=== PATIENT | male | born 1945 | race Caucasian/White ===

== ENCOUNTER 2019-05-05 08:34 | Outpatient (CLI) | payer MEDICARE, OTHER ==
--- NOTE | 2019-05-01 13:28 | NUR ---
STATES THEY WILL CALL AND CANCELL ON SUNDAY IF THE WEATHER IS BAD. GAVE THE [phone] NUMBER
[~2019-05-05] VITALS: Ht 172.7 cm; Wt 74.7 kg
[2019-05-05] VITALS (12 sets, daily range): BP systolic 98–119; BP diastolic 52–71; PULSE 54–61
[~2019-05-05 08:34] MED LIST: ALTACE 10MG TAB10 MG PO; ASPIRIN 81M81 MG/TA2 PO; COUMADIN 1MG1 MG/TAB PO; COUMADIN 22.5 MG/TAB PO; COUMADIN 5MG5 MG/TAB; CRESTOR40 MG PO; EFFIENT10 MG PO; FLOMAX 0.40.4 MG/CAP PO; TENORMIN 5050 MG/TAB PO
[2019-05-05] MEDS ORDERED: EPA FISH OIL1 SGL PO (09:02)
[2019-05-05 09:07] LABS: INR 1.5 (0.8-3.0); PROTHROMBIN TIME 17.5 SECONDS (9.7-12.8)
--- NOTE | 2019-05-05 10:40 | NUR ---
Dr Naylor in room, procedure started
--- NOTE | 2019-05-05 10:53 | NUR ---
several tissue samples put in formulin, procedure completed, has bandaid over site
--- NOTE | 2019-05-05 11:00 | NUR ---
BEDSIDE REPORT TAKEN FROM ERIKA SHAFFER IN RADIOLOGY.
--- NOTE | 2019-05-05 13:00 | NUR ---
XRAY CALLED TO GATHER POST CHEST XRAY AFTER LUNG BIOPSY. XRAY AWARE.
--- NOTE | 2019-05-05 13:30 | NUR ---
DR WILEY IN TO SPEAK WITH PT/SPOUSE. PER DR WILEY, PT IS OK TO BE DISCHARGED TO HOME. ENCOURAGED TO TAKE IT EASY FOR THE REST OF THE DAY. D/C INSTRUCTIONS WERE REVIEWED WITH PT/SPOUSE BY THIS RN. PT/SPOUSE VOICE UNDERSTANDING. PT VOIDED WITH NO COMPLICATIONS. PT DOES NOT COMPLAIN OF N/V WITH INTAKE. PT WAS DISCHARGED VIA AMBULATION WITH AT HIS SIDE TO PRIVATE VEHICLE WITH DISCHARGE INSTRUCTIONS IN HAND.
== END 2019-05-05 13:52 | disposition home or self-care (01) ==
LOC: COL.RAD 08:34
PROVIDERS: Radiology Diagnostic Radiology
DX: R91.8 Other nonspecific abnormal finding of lung field (principal); R93.89 Abnormal findings on diagnostic imaging of other specified body structures; Z98.890 Other specified postprocedural states

== ENCOUNTER 2019-07-08 05:51 | Day surgery (SDC) | payer MEDICARE, OTHER ==
[~2019-07-08] VITALS: Ht 174 cm; Wt 72.9 kg
[~2019-07-08 05:51] MED LIST changes: +EPA FISH OIL1 SGL PO
[2019-07-08 06:29] VITALS: BP 116/48; PULSE 64; TEMP 98.3
--- NOTE | 2019-07-08 06:39 | NUR ---
TO RM AT 0601- CALL LIGHT IN REACH AT BEDSIDE.
[2019-07-08 08:47] LABS: INR 1.3 (0.8-3.0); PROTHROMBIN TIME 15.8 SECONDS (9.7-12.8)
[2019-07-08 09:34] VITALS: BP 106/54; PULSE 78
--- NOTE | 2019-07-08 09:34 | NUR ---
TO RM 7 PER CART FROM OR, ALERT ORIENTED X3, TALKING TO STAFF AND . PIERSON SET DRESSING OVER INCISION SITE,CLEAN DRY INTACT. DENIES PAIN OR DISCOMFORT AT THIS TIME.
[2019-07-08 09:55] VITALS: BP 97/44; PULSE 60
--- NOTE | 2019-07-08 09:55 | NUR ---
ATE 100% AND ASK FOR 2ND MUFFIN.
[2019-07-08 10:10] VITALS: BP 106/44; PULSE 58
--- NOTE | 2019-07-08 10:10 | NUR ---
RECEIVED 2ND CUP OF COFFEE.
[2019-07-08] MEDS ORDERED: NORCO 325 MG-51 TAB PO (10:11)
[2019-07-08] MEDS ORDERED: MOTRIN 600600 MG/TAB PO (10:11)
[2019-07-08 10:25] VITALS: BP 102/45; PULSE 59
--- NOTE | 2019-07-08 10:25 | NUR ---
RESTING AND SIPPING ON COFFEE. CONTINUES TO HAVE OCCASIONAL COUGH
--- NOTE | 2019-07-08 10:45 | NUR ---
AMBULATED TO BATHROOM, VOIDED AND TOLERATED WELL. OFFERED PATIENT TO REST OR HE COULD GO HOME. PATIENT STATED " I THINK I FEEL LIKE GOING HOME."
--- NOTE | 2019-07-08 11:00 | NUR ---
RECEIVED DISCHARGE INSTRUCTIONS AND VERBALIZED UNDERSTANDING. DISCONTINUED IV AND INT- CATHETER INTACT.
--- NOTE | 2019-07-08 11:15 | NUR ---
DISCHARGED PER WC BY NURSING STAFF TO PRIVATE CAR IN CARE OF - RADHA.
== END 2019-07-08 11:36 | disposition home or self-care (01) ==
LOC: SDCO 05:51
PROVIDERS: Surgery
DX: C34.92 Malignant neoplasm of unspecified part of left bronchus or lung (principal); Z79.82 Long term (current) use of aspirin; Z79.01 Long term (current) use of anticoagulants; Z79.899 Other long term (current) drug therapy; I25.10 Atherosclerotic heart disease of native coronary artery without angina pectoris; I25.2 Old myocardial infarction; I10 Essential (primary) hypertension; E78.00 Pure hypercholesterolemia, unspecified; Z95.5 Presence of coronary angioplasty implant and graft; Z87.891 Personal history of nicotine dependence
CPT/HCPCS: C1788; J1644; J2704; J3010; J7120

== ENCOUNTER → 2020-01-28 | Outpatient (CLI) | payer MEDICARE, OTHER ==
[2020-01-28] VITALS (15 sets, daily range): BP systolic 92–134; BP diastolic 49–74; PULSE 60–83
[~2020-01-28] VITALS: Ht 172.7 cm; Wt 72.6 kg
[~2020-01-28] MED LIST changes: +CEPHALEXIN500 M1 PO; +ELIQUIS 2.5 PO; +ELIQUIS 5MG PO; +MOTRIN 600600 MG/TAB PO; +MUCINEX PO; +NORCO 325 MG-51 TAB PO
--- NOTE | 2020-01-28 10:50 | NUR ---
Pt to ct per ambulation. Pt positioned on CT table in prone position. Monitors applied to pt. O2 on at 2l/nc.
--- NOTE | 2020-01-28 11:05 | NUR ---
Dr Bae into room and talks with pt.
--- NOTE | 2020-01-28 11:21 | NUR ---
Specimens obtained by Dr Bae and placed in formalin. Specimen labeled.
--- NOTE | 2020-01-28 12:36 | NUR ---
Pt given vanilla pudding and coffee to drink. Bandaid to right side back continues unchanged.
== END ==
LOC: COL.RAD 09:41
DX: C34.32 Malignant neoplasm of lower lobe, left bronchus or lung (principal); N28.89 Other specified disorders of kidney and ureter
CPT/HCPCS: J1644; J2250; J3010

== ENCOUNTER 2020-03-04 12:20 | Inpatient (IN) | payer MEDICARE, OTHER ==
[~2020-03-04] VITALS: Ht 172.7 cm; Wt 72.2 kg
[~2020-03-04 12:20] MED LIST changes: +TYLENOL 325MG325 MG PO; +ZESTRIL 5MG5 MG PO
[2020-03-04 12:58] LABS: HEMOGLOBIN 10.4 g/dl (13.5-18.0); MEAN CELL VOLUME 81 fl (80.0-100.0); MEAN CORPUSCULAR HEMOGLOBIN 26 pg (27.0-31.0); MEAN CORPUSCULAR HGB CONC 32 g/dl (33.0-37.0); MEAN PLATELET VOLUME 9.7 fl (7.4-10.4); PLATELET COUNT 65 K/mm3 (130-400); RED BLOOD COUNT 3.96 M/mm3 (4.20-5.60); REDCELL DISTRIBUTION WIDTH-CV 14.8 % (11.5-14.5)
[2020-03-04 13:02] LABS: HEMATOCRIT 32.2 % (42.0-52.0)
[2020-03-04 13:10] LABS: ALBUMIN 3.6 gm/dL (3.5-5.0); BILIRUBIN,TOTAL 0.5 mg/dL (0.0-1.0); C-REACTIVE PROTEIN 3.6 mg/dL (0.0-0.9); CALCIUM 8.5 mg/dL (8.4-10.2); CREATININE, serum 1.49 (0.66-1.25); POTASSIUM 4.8 mmol/L (3.4-5.0); TOTAL PROTEIN 6.8 gm/dL (6.4-8.2)
[2020-03-04 13:35] LABS: BAND 2 % (0-10); NEUTROPHILS 14 % (42.0-75.2)
[2020-03-04 13:36] LABS: PLATELET ESTIMATE DECREASED (NORMAL)
[2020-03-04 13:38] LABS: OVALOCYTES 1+
[2020-03-04 13:39] LABS: HYPOCHROMIA 1+
[2020-03-04 13:40] LABS: LYMPHOCYTE 81 % (20.0-51.0)
[2020-03-04 13:51] LABS: INR 1.4 (0.8-3.0); PROTHROMBIN TIME 15.8 SECONDS (9.7-12.8)
[2020-03-04] MEDS ORDERED: FOLIC ACID 11 MG/TA1 PO (14:12)
[2020-03-04 14:57] LABS: COLLECTION METHOD CLEAN CATCH
[2020-03-04 15:03] LABS: PH 6 (5-8); SQUAMOUS EPITHELIAL 0-2 /hpf; URINE APPEARANCE Clear; URINE BACTERIA None Seen /hpf; URINE BILIRUBIN Negative (NEGATIVE); URINE BLOOD Negative (NEGATIVE); URINE COLOR Yellow; URINE GLUCOSE Negative (NEGATIVE); URINE KETONE Negative (NEGATIVE); URINE LEUKOCYTE ESTERASE Negative (NEGATIVE); URINE NITRATE Negative (NEGATIVE); URINE PROTEIN(semi-quant) Negative (NEGATIVE); URINE RBC 0-2 /hpf; URINE UROBILINOGEN Negative (NEGATIVE)
[2020-03-04 17:25] VITALS: BP 126/67; PULSE 79; TEMP 97.7
--- NOTE | 2020-03-04 18:43 | NUR ---
Patient arrived to floor at approximately 1720. Patient is alert and oriented, answers questions appropriately. Patient moves in the room independently and is continent of bladder and bowel. Patient denies needs at this time, call light within reach.
[2020-03-04 19:34] VITALS: BP 125/42; PULSE 62; TEMP 98.2
--- NOTE | 2020-03-04 20:00 | NUR ---
Report received, assumed care for exchange underwriting consultant. Assessment complete. VS stable. A&Ox3-drowsy. Denies shortness of breath/nausea. Pain to abdomen/back-described as ache-Pain meds given per dr order. Port to right chest with NS@75mls/hr. Plan of care discussed for pain/nausea meds-calling for needs. Verbalizes understanding. Call light in reach. Will monitor.
[2020-03-05] VITALS (7 sets, daily range): BP systolic 95–124; BP diastolic 45–60; PULSE 62–79; TEMP 97.9–98.9
--- NOTE | 2020-03-05 | NUR ---
Called with c/o pain to back/abdomen-rating 8/10 on pain scale-described as constant ache. Morphine given per dr order. Will monitor.
--- NOTE | 2020-03-05 00:03 | NUR ---
Resting eyes closed. No s/s of pain noted.
--- NOTE | 2020-03-05 01:15 | NUR ---
Called stating pain is 8/10 to back/abdomen-described as constant ache. States morphine did not touch pain. Dilaudid given per dr order. Will monitor.
--- NOTE | 2020-03-05 01:45 | NUR ---
Resting eyes closed. NO s/s of pain noted.
--- NOTE | 2020-03-05 03:00 | NUR ---
Called with c/o nausea. Did have 100mls of emesis-undigested food. C/O pain as well to abdomen-described as cramping-rating 6/10 on pain scale. Dilaudid given per dr order. Will monitor.
--- NOTE | 2020-03-05 05:00 | NUR ---
Sitting up in bed-c/o pain to abdomen/back-rating 8/10 on pain scale-described as constant ache. States dilaudid given at 0115 worked much better than the previous doses of morphine and lasted much longer. Dilaudid given now per dr order. Denies nausea/shortness of breath. VS remained stable this shift. Tolerated clear liquids. NS@75ml/hr to right chest port infusing without difficulties. Call light in reach. Will continue to monitor.
[2020-03-05 06:25] LABS: MEAN CELL VOLUME 82 fl (80.0-100.0); MEAN CORPUSCULAR HGB CONC 32 g/dl (33.0-37.0); MEAN PLATELET VOLUME 10.4 fl (7.4-10.4); RED BLOOD COUNT 3.46 M/mm3 (4.20-5.60)
[2020-03-05 06:33] LABS: CALCIUM 8.2 mg/dL (8.4-10.2); CREATININE, serum 1.5 (0.66-1.25); POTASSIUM 4.9 mmol/L (3.4-5.0)
[2020-03-05 06:41] LABS: HEMATOCRIT 28.4 % (42.0-52.0); HEMOGLOBIN 9.2 g/dl (13.5-18.0); MEAN CORPUSCULAR HEMOGLOBIN 27 pg (27.0-31.0); PLATELET COUNT 47 K/mm3 (130-400)
[2020-03-05 06:55] LABS: BAND 3 % (0-10); BASOPHIL 1 % (0-2); LYMPHOCYTE 65 % (20.0-51.0); NEUTROPHILS 22 % (42.0-75.2); NUCLEATED RED BLOOD CELL 1 (0-6)
[2020-03-05 06:56] LABS: HYPOCHROMIA 1+; PLATELET ESTIMATE DECREASED (NORMAL)
[2020-03-05 06:57] LABS: OVALOCYTES 2+
--- NOTE | 2020-03-05 07:34 | NUR ---
Critical lab results called to hospitalist Angelina mcghee.
--- NOTE | 2020-03-05 08:30 | NUR ---
Patient resting in bed with complaints of nausea and pain. Gave zofran and dilaudid. Patient now resting comfortably in bed. rounded on patient and reviewed plan of care.
--- NOTE | 2020-03-05 14:42 | NUR ---
Vp Marketing met with patient to discuss discharge planning. Patient lives in [place] with his significant other, Jennifer (ph#[phone]). Patient reports that he is not legally to Jennifer, but is common law. Patient sees Dr. Teran for primary care and Dr. Ramires for Oncology. Patient reports he receives chemotherapy every three weeks. Patient obtains medications from [facility] with no difficulties. Patient does not use any DME and reports independence with ADLS. Patient states he is unsure if he has DPOA-HC set up at this time. Patient has two children, Nkiki ([place], [place]) and Karen ([place], [place]). Following intake, SINTIA contacted [facility] [place] at Dr. Teran's office and they did not have any Advance Directives for patient. SINTIA also contacted Dr. Ramires's office and they also do not have AD for patient. SW contacted patient's significant other, Jennifer to discuss discharge planning. Jennifer has no concerns with patient returning home at discharge. Jennifer advised patient does not have DPOA-HC at this time. SINTIA discussed Advance Directives with Jennifer and she expressed interest in sending home form with patient to complete at home. SINTIA followed up with patient about Advance Directives and patient does not want to designate DPOA-HC at this time, but does want to take home the form to discuss with Jennifer. SINTIA provided and will continue to follow.
--- NOTE | 2020-03-05 19:23 | NUR ---
Patient has continued complaints of right upper quadrant pain. He has tolerated some clear liquids.
--- NOTE | 2020-03-05 20:00 | NUR ---
Report received, assumed care for furniture restorer. Assessment complete. A&Ox3. VS stable. Denies pain/nausea/shortness of breath. Bowel sounds active in all quads. +flatus. tolerating diet. Portacath to right subclavian infusing NS@75ml/hr. Plan of care discussed for this shift to include HS meds/pain meds/nausea meds/calling for questions/concerns. Verbalizes understanding. Call light in reach. Will monitor.
--- NOTE | 2020-03-05 21:15 | NUR ---
Called with c/o pain to right abdominal quadrants radiating into back-described as constant throbbing-rating pain 10/28. Dilaudid given per dr pb. Will monitor.
--- NOTE | 2020-03-06 00:30 | NUR ---
Called with c/o pain to right upper quadrant and back-rating pain 6/10 on pain scale-described as throbbing. Dilaudid given per dr ambriz.
[2020-03-06 03:23] VITALS: BP 106/54; PULSE 97; TEMP 98.1
--- NOTE | 2020-03-06 05:30 | NUR ---
Rested off and on this shift. Pain adequately controlled with dilaudid. Received one dose of zofran for nausea. Portacath to right chest flushes without difficulty-good blood return. Denies shortness of breath. VS remained stable. Denies current needs. Call light in reach. Will monitor.
[2020-03-06 05:58] LABS: MEAN CELL VOLUME 81 fl (80.0-100.0); MEAN CORPUSCULAR HGB CONC 32 g/dl (33.0-37.0); RED BLOOD COUNT 3.14 M/mm3 (4.20-5.60)
[2020-03-06 06:01] LABS: HEMATOCRIT 25.4 % (42.0-52.0); HEMOGLOBIN 8.2 g/dl (13.5-18.0); MEAN CORPUSCULAR HEMOGLOBIN 26 pg (27.0-31.0)
[2020-03-06 06:03] LABS: PLATELET COUNT 28 K/mm3 (130-400)
[2020-03-06 06:09] LABS: CALCIUM 7.8 mg/dL (8.4-10.2); CREATININE, serum 1.68 (0.66-1.25); POTASSIUM 4.3 mmol/L (3.4-5.0)
--- NOTE | 2020-03-06 06:10 | NUR ---
Called with c/o bloody nose. Small amount of blood noted on kleenex-not currently bleeding. States it also happened yesterday on dayshift.
--- NOTE | 2020-03-06 06:16 | NUR ---
Dr Gunn notified of critical labs. No new orders received.
[2020-03-06 06:37] LABS: BAND 8 % (0-10); HYPOCHROMIA 1+; LYMPHOCYTE 50 % (20.0-51.0); MICROCYTOSIS 1+; NEUTROPHILS 36 % (42.0-75.2); PLATELET ESTIMATE DECREASED (NORMAL)
[2020-03-06 06:38] LABS: OVALOCYTES 1+
[2020-03-06 07:27] VITALS: BP 118/97; PULSE 84; TEMP 97.2
--- NOTE | 2020-03-06 07:57 | NUR ---
Sitting up in bed with eyes open watching TV. Having some pain and if able would like to get pain medication. Explains that pain is at lower right rib cage and stomach area. Will assess last dose of pain medication and administer if able. Patient short of air with activity. Has had bloody nose this morning. Denies any other needs or concerns at this time.
[2020-03-06 11:44] VITALS: BP 98/46; PULSE 65; TEMP 97.4
--- NOTE | 2020-03-06 12:10 | NUR ---
Sitting up in bed watching TV. Rates pain 4/10 in right upper abd, worse with movement, tolerable at this time. Patient denies any additional needs or concerns at this time.
[2020-03-06 16:05] VITALS: BP 121/52; PULSE 84; TEMP 98.3
--- NOTE | 2020-03-06 17:54 | NUR ---
Lying in bed with eyes open talking with spouse. Denies pain. Explains that he has questions about why he is still on Eliquis as he has not had a blood clot or heart problems for many years and he is not certain why he has to be on it. Explain that we will need to discuss this further with his provider in the morning to see if we can get some answers. Patient and agree. Patient denies any additional needs or concerns at this time.
[2020-03-06 19:48] VITALS: BP 108/46; PULSE 66; TEMP 99.2
--- NOTE | 2020-03-06 20:30 | NUR ---
Pt. sitting up in bed at this time. Pt. is A&OX3, assessment complete. PORT to rt. chest patent. Pt. denies pain or other needs, call light within reach.
[2020-03-06 23:50] VITALS: BP 92/43; PULSE 66; TEMP 98.7
[2020-03-07 03:39] VITALS: BP 98/45; PULSE 83; TEMP 97.8
--- NOTE | 2020-03-07 04:25 | NUR ---
PT AWAKE. STARTED ZOSYN INFUSION TO RT PORT, HAS GOOD BLOOD RETURN WHEN FLUSHED, INFUSING AT 25CC/HR. PT BLOWS NOSE, HAS LARGE STRINGY CLOT FROM LEFT NARE AND SMALL CLOT FROM RT NARE. DENIES PAIN AT THIS TIME.
[2020-03-07 05:36] LABS: MEAN CELL VOLUME 81 fl (80.0-100.0); MEAN CORPUSCULAR HGB CONC 32 g/dl (33.0-37.0); MEAN PLATELET VOLUME 10.8 fl (7.4-10.4); RED BLOOD COUNT 2.81 M/mm3 (4.20-5.60); REDCELL DISTRIBUTION WIDTH-CV 15.1 % (11.5-14.5)
[2020-03-07 05:41] LABS: HEMATOCRIT 22.7 % (42.0-52.0); HEMOGLOBIN 7.3 g/dl (13.5-18.0); MEAN CORPUSCULAR HEMOGLOBIN 26 pg (27.0-31.0); PLATELET COUNT 22 K/mm3 (130-400)
[2020-03-07 05:45] LABS: CALCIUM 7.9 mg/dL (8.4-10.2); CREATININE, serum 2.13 (0.66-1.25); POTASSIUM 3.9 mmol/L (3.4-5.0)
--- NOTE | 2020-03-07 05:49 | NUR ---
REPORTED WBC=1.4 AND PLT 22 TO KANE JIMENEZ. NO NEW ORDERS. PT HAS NO ACTIVE BLEEDING.
[2020-03-07 05:57] LABS: LYMPHOCYTE 62 % (20.0-51.0); NEUTROPHILS 24 % (42.0-75.2); PLATELET ESTIMATE DECREASED (NORMAL)
[2020-03-07 05:58] LABS: METAMYELOCYTE 1 % (0-0)
[2020-03-07 07:09] VITALS: BP 98/48; PULSE 81; TEMP 97.6
--- NOTE | 2020-03-07 07:49 | NUR ---
Sitting up in bed eating clear liquid breakfast. Rates pain in right upper abd 2/10. Patient says that he feels okay this morning, was able to get some sleep last night. Denies any additional needs or concerns at this time.
[2020-03-07 11:19] VITALS: BP 97/44; PULSE 70; TEMP 97.7
--- NOTE | 2020-03-07 12:10 | NUR ---
Sitting up in bed watching TV and eation low fiber lunch. Patient rates pain in right upper abd 05/30. Feels that he is getting better. Denies additional needs or concerns at this time.
[2020-03-07 15:44] VITALS: BP 113/51; PULSE 68; TEMP 98.2
--- NOTE | 2020-03-07 16:19 | NUR ---
Resumed care after getting report from Angelina. Patient is resting in bed with no complaints of pain.
--- NOTE | 2020-03-07 18:54 | NUR ---
Patient resting, denies need. Report to ERIKA Quijano
[2020-03-07 20:26] VITALS: BP 115/44; PULSE 85; TEMP 99
[2020-03-07 23:54] VITALS: BP 112/49; PULSE 83; TEMP 98.9; TEMP 987.9
[2020-03-08] VITALS (7 sets, daily range): BP systolic 102–131; BP diastolic 42–71; PULSE 62–87; TEMP 97.4–98.3
[2020-03-08 06:59] LABS: MEAN CELL VOLUME 81 fl (80.0-100.0); MEAN CORPUSCULAR HGB CONC 33 g/dl (33.0-37.0); MEAN PLATELET VOLUME 10.6 fl (7.4-10.4); RED BLOOD COUNT 2.84 M/mm3 (4.20-5.60)
[2020-03-08 07:05] LABS: CALCIUM 7.7 mg/dL (8.4-10.2); CREATININE, serum 2.15 (0.66-1.25); POTASSIUM 3.7 mmol/L (3.4-5.0)
[2020-03-08 07:15] LABS: HEMOGLOBIN 7.5 g/dl (13.5-18.0); MEAN CORPUSCULAR HEMOGLOBIN 26 pg (27.0-31.0)
[2020-03-08 07:16] LABS: PLATELET COUNT 31 K/mm3 (130-400)
[2020-03-08 07:54] LABS: ANISOCYTOSIS 1+; BAND 16 % (0-10); LYMPHOCYTE 31 % (20.0-51.0); NEUTROPHILS 36 % (42.0-75.2); PLATELET ESTIMATE DECREASED (NORMAL)
[2020-03-08 07:55] LABS: HYPOCHROMIA 1+; OVALOCYTES 1+
--- NOTE | 2020-03-08 08:00 | NUR ---
Patient in bed eating breakfast. Alert and oriented x 3. Assessment complete. Denies pain at this time. IV fluids infusing per orders. Denies further needs at this time.
--- NOTE | 2020-03-08 20:51 | NUR ---
PT IN BED. TAKES HS MEDS INCLUDING ES TYLENOL 2 TABS FOR LEG PAIN. IS ALERT AND ORIENTED X4. HAS IVF INFUSING TO RT PORT. REPORTS LARGE BM TODAY. VOIDING PER URINAL. WATCHING TV.
[2020-03-09 04:18] VITALS: BP 117/52; PULSE 70; TEMP 98.4
--- NOTE | 2020-03-09 06:00 | NUR ---
Takes AM med without problem. Denies needs at this time. IVF continue.
[2020-03-09 07:50] VITALS: BP 126/53; PULSE 70; TEMP 97.8
--- NOTE | 2020-03-09 08:00 | NUR ---
PATIENT IS A&O. VSS. REPORTS MILD MORNING STIFFNESS IN LEG. GAVE PRN TYLENOL, TWO TABS WITH AM MEDS. NO C/O N/V. BREAKFAST TRAY AT BEDSIDE. LOW FIBER DIET. IV ABX INFUSING INTO RIGHT CHEST PORT. AM BS IS 109, NO SSI REQUIRED. PATIENT HOPING TO DISCHARGE HOME LATER TODAY.
[2020-03-09] MEDS ORDERED: PROTONIX 40MG T40 MG PO (08:57)
[2020-03-09] MEDS ORDERED: OMNICEF 300MG300 MG PO (09:05)
--- NOTE | 2020-03-09 09:21 | NUR ---
The patient is to tentatively discharge back home with his significant other today, 03/09. SW met with the patient to review d/c plan. The patient had no concerns about returning home. SW presented and read the IM form outloud to the patient. The patient verbalized understanding and gave SW approval to sign the form on his behalf. SW provided him with a copy. No additional needs at this time.
[2020-03-09 09:41] LABS: MEAN CELL VOLUME 81 fl (80.0-100.0); MEAN CORPUSCULAR HGB CONC 33 g/dl (33.0-37.0); MEAN PLATELET VOLUME 10.4 fl (7.4-10.4); PLATELET COUNT 72 K/mm3 (130-400); REDCELL DISTRIBUTION WIDTH-CV 15.3 % (11.5-14.5)
[2020-03-09 09:42] LABS: CALCIUM 7.6 mg/dL (8.4-10.2); CREATININE, serum 1.74 (0.66-1.25); HEMATOCRIT 24.3 % (42.0-52.0); MAGNESIUM 1.7 mg/dL (1.6-2.3); MEAN CORPUSCULAR HEMOGLOBIN 27 pg (27.0-31.0); POTASSIUM 3.6 mmol/L (3.4-5.0)
[2020-03-09 10:07] LABS: MYELOCYTE 3 % (0-0)
[2020-03-09 10:08] LABS: HYPOCHROMIA 2+; OVALOCYTES 1+; PLATELET ESTIMATE DECREASED (NORMAL)
--- NOTE | 2020-03-09 10:12 | NUR ---
Initial visit; Patient thanked Addictions Therapist for looking in on him and offering God's blessings.
[2020-03-09 10:16] LABS: LYMPHOCYTE 14 % (20.0-51.0); METAMYELOCYTE 3 % (0-0); NEUTROPHILS 36 % (42.0-75.2)
[2020-03-09 10:18] LABS: BAND 33 % (0-10)
--- NOTE | 2020-03-09 11:15 | NUR ---
PATIENT DISCHARGING HOME VIA AMBULATORY TO PERSONAL VEHICLE WITH . GAVE DISCHARGE INSTRUCTIONS, SCRIPTS SENT ELECTRONICALLY, AND DISCUSSED F/U APTS. ANSWERED ALL QUESTIONS/CONCERNS. DC-ACCESSED RIGHT CHEST PORT AND COVERED WITH GAUZE & OCCULSIVE TAPE. PATIENT DRESSED AND PACKED FOR DISCHARGE. PATIENT ESCORTED OUT.
== END 2020-03-09 11:15 | disposition home or self-care (01) | DRG 391 ==
LOC: COL.ER 12:20 → SURG 15:28
PROVIDERS: Emergency Medicine; Internal Medicine; Physician Assistant; ADMIT Student in an Organized Health Care Education/Training Program
DX: K29.80 Duodenitis without bleeding (principal); D61.810 Antineoplastic chemotherapy induced pancytopenia; N17.9 Acute kidney failure, unspecified; E87.1 Hypo-osmolality and hyponatremia; C34.90 Malignant neoplasm of unspecified part of unspecified bronchus or lung; I50.22 Chronic systolic (congestive) heart failure; I13.0 Hypertensive heart and chronic kidney disease with heart failure and stage 1 through stage 4 chronic kidney disease, or unspecified chronic kidney disease; K80.80 Other cholelithiasis without obstruction; T45.1X5A Adverse effect of antineoplastic and immunosuppressive drugs, initial encounter; N18.9 Chronic kidney disease, unspecified; K59.00 Constipation, unspecified; D64.9 Anemia, unspecified; E11.65 Type 2 diabetes mellitus with hyperglycemia; E11.22 Type 2 diabetes mellitus with diabetic chronic kidney disease; I25.10 Atherosclerotic heart disease of native coronary artery without angina pectoris; E78.5 Hyperlipidemia, unspecified; E11.51 Type 2 diabetes mellitus with diabetic peripheral angiopathy without gangrene; N20.0 Calculus of kidney; I49.5 Sick sinus syndrome; Z95.1 Presence of aortocoronary bypass graft; Z86.718 Personal history of other venous thrombosis and embolism; Z79.01 Long term (current) use of anticoagulants; Z87.891 Personal history of nicotine dependence; Z95.0 Presence of cardiac pacemaker
CPT/HCPCS: 99223-AI; 99232-AI; 99233-AI; 99239; C9113; J0696; J1170; J1447; J1815; J2270; J2405; J2543; J7030; Q9967

== ENCOUNTER 2020-03-12 00:19 | Emergency (ER) | payer MEDICARE, OTHER ==
[~2020-03-12] VITALS: Ht 172.7 cm; Wt 71.4 kg
[~2020-03-12 00:19] MED LIST changes: +FOLIC ACID 11 MG/TA1 PO; +OMNICEF 300MG300 MG PO; +PROTONIX 40MG T40 MG PO
[2020-03-12 00:25] VITALS: TEMP 97.1
[2020-03-12 01:52] LABS: COLLECTION METHOD IN
[2020-03-12 02:01] LABS: PH 6 (5-8); SQUAMOUS EPITHELIAL None Seen /hpf; URINE APPEARANCE Clear; URINE BACTERIA Rare /hpf; URINE BILIRUBIN Negative (NEGATIVE); URINE BLOOD 1+ (NEGATIVE); URINE COLOR Yellow; URINE GLUCOSE Negative (NEGATIVE); URINE KETONE Negative (NEGATIVE); URINE LEUKOCYTE ESTERASE Negative (NEGATIVE); URINE NITRATE Negative (NEGATIVE); URINE PROTEIN(semi-quant) 1+ (NEGATIVE); URINE UROBILINOGEN Negative (NEGATIVE)
[2020-03-12] MEDS ORDERED: OMNICEF 300MG300 MG PO (02:10)
[2020-03-12 02:25] VITALS: BP 108/58; PULSE 84
== END 2020-03-12 02:30 | disposition home or self-care (01) ==
LOC: COL.ER 00:19
PROVIDERS: Emergency Medicine
DX: R33.9 Retention of urine, unspecified (principal); I25.10 Atherosclerotic heart disease of native coronary artery without angina pectoris; I10 Essential (primary) hypertension; N17.9 Acute kidney failure, unspecified; C78.00 Secondary malignant neoplasm of unspecified lung; Z79.01 Long term (current) use of anticoagulants

== ENCOUNTER 2020-04-14 19:44 | Emergency (ER) | payer MEDICARE, OTHER ==
[~2020-04-14] VITALS: Ht 172.7 cm; Wt 71.8 kg
[~2020-04-14 19:44] MED LIST changes: +ALTACE 5MG5 MG PO; +B-12 500 MCG PO
[2020-04-14 19:54] VITALS: TEMP 97.2
[2020-04-14 21:15] LABS: MEAN CELL VOLUME 87 fl (80.0-100.0); MEAN CORPUSCULAR HGB CONC 33 g/dl (33.0-37.0); MEAN PLATELET VOLUME 10.4 fl (7.4-10.4); RED BLOOD COUNT 2.72 M/mm3 (4.20-5.60); REDCELL DISTRIBUTION WIDTH-CV 19.8 % (11.5-14.5)
[2020-04-14 21:21] LABS: BILIRUBIN,TOTAL 0.6 mg/dL (0.0-1.0); C-REACTIVE PROTEIN 5.6 mg/dL (0.0-0.9); CALCIUM 7.5 mg/dL (8.4-10.2); CREATININE, serum 1.27 (0.66-1.25); POTASSIUM 3.9 mmol/L (3.4-5.0); TOTAL PROTEIN 5.5 gm/dL (6.4-8.2)
[2020-04-14 21:27] LABS: HEMATOCRIT 23.7 % (42.0-52.0); HEMOGLOBIN 7.9 g/dl (13.5-18.0); MEAN CORPUSCULAR HEMOGLOBIN 29 pg (27.0-31.0); PLATELET COUNT 37 K/mm3 (130-400)
[2020-04-14] MEDS ORDERED: AMOXICILLIN 8751 TAB PO (22:50)
[2020-04-14 22:52] LABS: INR 24.5 (0.8-3.0)
[2020-04-14 22:53] LABS: ANISOCYTOSIS 2+; LYMPHOCYTE 56 % (20.0-51.0); NEUTROPHILS 36 % (42.0-75.2); PLATELET ESTIMATE DECREASED (NORMAL)
[2020-04-14 22:55] LABS: POLYCHROMASIA 1+
[2020-04-14 23:45] LABS: INR 1.5 (0.8-3.0); PROTHROMBIN TIME 16.4 SECONDS (9.7-12.8)
[2020-04-15 00:16] VITALS: BP 124/61; PULSE 87
== END 2020-04-15 00:20 | disposition home or self-care (01) ==
LOC: COL.ER 19:44
PROVIDERS: Emergency Medicine
DX: S02.611A Fracture of condylar process of right mandible, initial encounter for closed fracture (principal); S01.81XA Laceration without foreign body of other part of head, initial encounter; S01.311A Laceration without foreign body of right ear, initial encounter; D72.819 Decreased white blood cell count, unspecified; D69.6 Thrombocytopenia, unspecified; C79.01 Secondary malignant neoplasm of right kidney and renal pelvis; M50.322 Other cervical disc degeneration at C5-C6 level; I11.0 Hypertensive heart disease with heart failure; I50.20 Unspecified systolic (congestive) heart failure; E78.5 Hyperlipidemia, unspecified; Z51.11 Encounter for antineoplastic chemotherapy; I25.10 Atherosclerotic heart disease of native coronary artery without angina pectoris; Z85.118 Personal history of other malignant neoplasm of bronchus and lung; Z95.1 Presence of aortocoronary bypass graft; Z86.718 Personal history of other venous thrombosis and embolism; Z95.2 Presence of prosthetic heart valve; Z79.01 Long term (current) use of anticoagulants; Z79.82 Long term (current) use of aspirin; W01.198A Fall on same level from slipping, tripping and stumbling with subsequent striking against other object, initial encounter
CPT/HCPCS: J7030

== ENCOUNTER 2020-05-07 15:10 | Emergency (ER) | payer MEDICARE, OTHER ==
[~2020-05-07] VITALS: Ht 172.7 cm; Wt 70.0 kg
[~2020-05-07 15:10] MED LIST changes: +AMOXICILLIN 8751 TAB PO
[2020-05-07 15:22] VITALS: TEMP 97.5
[2020-05-07 16:16] LABS: MEAN CELL VOLUME 94 fl (80.0-100.0); MEAN CORPUSCULAR HGB CONC 32 g/dl (33.0-37.0); MEAN PLATELET VOLUME 11.2 fl (7.4-10.4); RED BLOOD COUNT 2.75 M/mm3 (4.20-5.60); REDCELL DISTRIBUTION WIDTH-CV 21.6 % (11.5-14.5)
[2020-05-07 16:26] LABS: ALBUMIN 3.7 gm/dL (3.5-5.0); BILIRUBIN,TOTAL 0.5 mg/dL (0.0-1.0); C-REACTIVE PROTEIN 3.2 mg/dL (0.0-0.9); CALCIUM 8.4 mg/dL (8.4-10.2); CREATININE, serum 1.64 (0.66-1.25); HEMATOCRIT 25.7 % (42.0-52.0); HEMOGLOBIN 8.3 g/dl (13.5-18.0); MEAN CORPUSCULAR HEMOGLOBIN 30 pg (27.0-31.0); PLATELET COUNT 29 K/mm3 (130-400); POTASSIUM 5.3 mmol/L (3.4-5.0); TOTAL PROTEIN 6.6 gm/dL (6.4-8.2)
[2020-05-07 16:35] LABS: TROPONIN-I 0.022 ng/mL (0.000-0.035)
[2020-05-07 17:13] LABS: ANISOCYTOSIS 2+; EOSINOPHIL 8 % (0-4); HYPOCHROMIA 1+; LYMPHOCYTE 52 % (20.0-51.0); METAMYELOCYTE 4 % (0-0); NEUTROPHILS 4 % (42.0-75.2)
[2020-05-07 17:14] LABS: OVALOCYTES 1+; PLATELET ESTIMATE DECREASED (NORMAL); TEAR DROP CELLS 1+
[2020-05-07 21:58] VITALS: BP 114/58; PULSE 76
[2020-05-08 09:53] LABS: PATHOLOGY DIFF REVIEW OK
== END 2020-05-07 21:58 | disposition short-term general hospital (02) ==
LOC: COL.ER 15:10
PROVIDERS: Family Medicine
DX: I26.99 Other pulmonary embolism without acute cor pulmonale (principal); C34.90 Malignant neoplasm of unspecified part of unspecified bronchus or lung; D69.6 Thrombocytopenia, unspecified; D72.819 Decreased white blood cell count, unspecified; I10 Essential (primary) hypertension; E78.5 Hyperlipidemia, unspecified; I25.10 Atherosclerotic heart disease of native coronary artery without angina pectoris; I25.2 Old myocardial infarction; Z95.1 Presence of aortocoronary bypass graft; Z95.5 Presence of coronary angioplasty implant and graft; Z79.01 Long term (current) use of anticoagulants; Z79.82 Long term (current) use of aspirin
CPT/HCPCS: J0696; J1644; J1650; J7030; Q9967

== ENCOUNTER 2020-05-21 12:48 | Outpatient (RCR) | payer MEDICARE, OTHER ==
[2020-05-21] VITALS (10 sets, daily range): BP systolic 104–131; BP diastolic 47–67; PULSE 64–79; TEMP 97.6–98.6
--- NOTE | 2020-05-21 14:30 | NUR ---
Patient arrived to floor by wheelchair for blood transfusion, consent signed. Port accessed to right chest. Educated patient on transfusion. VSS. Denies needs at this time.
[2020-05-21] MEDS ORDERED: ZOFRAN8 MG PO (14:37)
[2020-05-21] MEDS ORDERED: B COMPLEX & B121 TAB (14:38)
[2020-05-21] MEDS ORDERED: CRESTOR40 MG PO (14:39)
--- NOTE | 2020-05-21 18:39 | NUR ---
Blood transfusion complete, patient VSS. Deneies adverse reaction. Order for H&H recheck entered. Denies needs at this time.
[2020-05-21 19:06] LABS: HEMATOCRIT 27.1 % (42.0-52.0); HEMOGLOBIN 8.9 g/dl (13.5-18.0)
== END 2020-05-24 ==
LOC: EUO
PROVIDERS: Internal Medicine Medical Oncology
DX: C34.32 Malignant neoplasm of lower lobe, left bronchus or lung (principal)
CPT/HCPCS: P9040

== ENCOUNTER 2020-07-03 12:46 | Outpatient (RCR) | payer MEDICARE, OTHER ==
[2020-07-02] VITALS (8 sets, daily range): BP systolic 99–128; BP diastolic 48–67; PULSE 61–80; TEMP 97.3–97.7
[~2020-07-03] VITALS: Ht 172.7 cm; Wt 97.3 kg
[2020-07-03] VITALS (7 sets, daily range): BP systolic 102–125; BP diastolic 41–46; PULSE 69–89; TEMP 97.8
[~2020-07-03 12:46] MED LIST changes: +B-121000 MCG PO; +ZOFRAN8 MG PO
--- NOTE | 2020-07-03 13:30 | NUR ---
PT PREMEDICATED WITH TYLENOL AND BENADRYL PER PHYSICIAN ORDER. BROUGHT PT AND PT ICE WATER. CONSENT SIGNED FOR PLATELETS. PORT ALREADY ACCESSED, NO OTHER NEEDS.
--- NOTE | 2020-07-03 14:14 | NUR ---
EDUCATED PT ON S/S OF INFUSION REACTION, BASELINE VITALS TAKEN, PLATELETS VERIFIED WITH AKILA RN. PT AOX4, STAYED WITH PT FOR FIRST 15MIN, NO OTHER NEEDS.
--- NOTE | 2020-07-03 14:37 | NUR ---
RATE INCREASED AFTER FIRST 15MIN WERE UP. SOME BP LOW WHEN PT MOVING AROUND BUT THEY WOULD COME UP ONCE PT ARM RELAXED AND NOT MOVING AT SIDE. PT NOT REPORTING ANY S/S OF TRANSFUSION REACTION, PT AOX4, COFFEE BROUGHT IN FOR PT AND DIET PEPSI FOR PT .
--- NOTE | 2020-07-03 16:24 | NUR ---
PT ESCORTED OUT WITH PT BELONGINGS VIA WHEELCHAIR
[2020-12-01] MEDS ORDERED: PROTONIX 40MG T40 MG PO (15:38)
[2020-12-01] MEDS ORDERED: ALTACE 2.5MG T2.5 MG PO (19:21)
[2020-12-01] MEDS ORDERED: TENORMIN 2525 MG/TAB PO (19:21)
[2020-12-02] MEDS ORDERED: NORCO 325 MG-51 TAB PO (17:38)
[2020-12-02] MEDS ORDERED: LEVAQUIN 5500 MG/TA1 PO (17:39)
[2020-12-03] MEDS ORDERED: SALINE 45 ML45 ML NS (19:48)
[2020-12-20] MEDS ORDERED: PROTONIX 40MG T40 MG PO (08:51)
[2020-12-20] MEDS ORDERED: ZIAC 5/6.25MG T1 TAB PO (08:53)
== END 2020-07-09 17:25 | disposition home or self-care (01) ==
LOC: EUO 12:46 → MEDICAL 13:00 → EUO 07-09 17:25
DX: C34.32 Malignant neoplasm of lower lobe, left bronchus or lung (principal)
CPT/HCPCS: OP; J1644; J7050; P9037; P9040

== ENCOUNTER 2020-11-30 10:44 | Emergency (ER) | payer MEDICARE, OTHER ==
[~2020-11-30] VITALS: Ht 172.7 cm; Wt 70.0 kg
[2020-11-30 11:49] LABS: BASO % 0.4 % (0.0-2.0); EOS # 0.1 (0.0-0.7); EOS % 0.5 % (0-4.0); GRAN # 7.8 (1.4-6.5); GRAN % 79.9 % (42.2-75.2); LYMPH % 10.3 % (20.0-51.0); MEAN CELL VOLUME 88 fl (80.0-100.0); MEAN CORPUSCULAR HGB CONC 31 g/dl (33.0-37.0); MEAN PLATELET VOLUME 8.9 fl (7.4-10.4); MONO # 0.8 (0.1-0.6); MONO % 8.1 % (1.7-9.3); PLATELET COUNT 296 K/mm3 (130-400); RED BLOOD COUNT 3.11 M/mm3 (4.20-5.60); REDCELL DISTRIBUTION WIDTH-CV 15.4 % (11.5-14.5)
[2020-11-30 11:51] LABS: HEMATOCRIT 27.5 % (42.0-52.0); HEMOGLOBIN 8.5 g/dl (13.5-18.0); MEAN CORPUSCULAR HEMOGLOBIN 27 pg (27.0-31.0)
[2020-11-30 11:55] LABS: ALANINE AMINOTRANSFERASE 10 U/L (4-49); ALBUMIN 3.5 gm/dL (3.5-5.0); ALKALINE PHOSPHATASE 84 U/L (50-136); ANION GAP 8 mmol/L (7-16); AST,SGOT 13 U/L (15-37); BILIRUBIN,TOTAL 0.3 mg/dL (0.0-1.0); BLOOD UREA NITROGEN 38 mg/dL (9-20); CALCIUM 9.4 mg/dL (8.4-10.2); CARBON DIOXIDE 19 mmol/L (22-30); CHLORIDE 101 mmol/L (98-107); CREATININE, serum 2.18 (0.66-1.25); GLUCOSE 232 mg/dL (74-106); POTASSIUM 4.6 mmol/L (3.4-5.0); SODIUM 128 mmol/L (137-145); TOTAL PROTEIN 7.6 gm/dL (6.4-8.2)
[2020-11-30 12:20] LABS: TROPONIN-I < 0.012 ng/mL (0.000-0.035)
[2020-11-30 13:30] VITALS: BP 120/72; PULSE 67; TEMP 97.8
[2020-11-30] MEDS ORDERED: LASIX 20MG TABL20 MG PO (15:47)
[2020-12-01] MEDS ORDERED: PROTONIX 40MG T40 MG PO (15:38)
[2020-12-01] MEDS ORDERED: TENORMIN 2525 MG/TAB PO (19:21)
[2020-12-01] MEDS ORDERED: ALTACE 2.5MG T2.5 MG PO (19:21)
[2020-12-02] MEDS ORDERED: NORCO 325 MG-51 TAB PO (17:38)
[2020-12-02] MEDS ORDERED: LEVAQUIN 5500 MG/TA1 PO (17:39)
[2020-12-03] MEDS ORDERED: SALINE 45 ML45 ML NS (19:48)
[2020-12-20] MEDS ORDERED: PROTONIX 40MG T40 MG PO (08:51)
[2020-12-20] MEDS ORDERED: ZIAC 5/6.25MG T1 TAB PO (08:53)
== END 2020-11-30 13:35 | disposition home or self-care (01) ==
LOC: COL.ER 10:44
PROVIDERS: Emergency Medicine
DX: I11.0 Hypertensive heart disease with heart failure (principal); I50.9 Heart failure, unspecified; R79.89 Other specified abnormal findings of blood chemistry; I25.10 Atherosclerotic heart disease of native coronary artery without angina pectoris; I25.2 Old myocardial infarction; E78.5 Hyperlipidemia, unspecified; Z95.1 Presence of aortocoronary bypass graft; Z95.0 Presence of cardiac pacemaker; Z98.61 Coronary angioplasty status; Z95.828 Presence of other vascular implants and grafts; Z20.822 Contact with and (suspected) exposure to COVID-19; Z79.82 Long term (current) use of aspirin; Z79.899 Other long term (current) drug therapy

== ENCOUNTER → 2020-12-21 | Outpatient (CLI) | payer MEDICARE, OTHER ==
[~2020-12-21] VITALS: Ht 172.7 cm; Wt 65.4 kg
[~2020-12-21] MED LIST changes: +ALTACE 2.5MG T2.5 MG PO; +DEMADEX5 MG PO; +DULCOLAX S10 MG/SUPP RC; +FERROUS SU325 MG/TAB PO; +LASIX 20MG TABL20 MG PO; +LEADER CLE17 GM/Dose PO; +LEVAQUIN 2250 MG/TAB PO; +LEVAQUIN 5500 MG/TA1 PO; +LEVEMIR100 U/ML SQ; +MEGACE 40MG40 MG/TAB PO; +NEURONTIN100 MG/CAP PO; +NOVLOG SQ; +OCEAN NASAL SPR45 ML NS; +PREDNISONE20 MG PO; +SALINE 45 ML45 ML NS; +SENEXON-S 50-81 EACH PO; +TENORMIN 2525 MG/TAB PO; +TOPROL XL 25MG25 MG PO; +ZIAC 5/6.25MG T1 TAB PO; +ZOLOFT 50MG50 MG PO
[2020-12-21 11:13] VITALS: BP 113/73; PULSE 78; TEMP 97.8
[2020-12-21 12:09] VITALS: BP 117/78; PULSE 79
== END ==
LOC: COL.RAD 10:37
DX: C34.32 Malignant neoplasm of lower lobe, left bronchus or lung (principal); J90 Pleural effusion, not elsewhere classified; Z95.1 Presence of aortocoronary bypass graft
CPT/HCPCS: 19804

== ENCOUNTER 2020-12-27 09:29 | Observation (INO) | payer MEDICARE, OTHER ==
[~2020-12-27] VITALS: Ht 172.7 cm; Wt 70.0 kg
[~2020-12-27 09:29] MED LIST changes: -DEMADEX5 MG PO; -DULCOLAX S10 MG/SUPP RC; -FERROUS SU325 MG/TAB PO; -LEADER CLE17 GM/Dose PO; -LEVAQUIN 2250 MG/TAB PO; -LEVEMIR100 U/ML SQ; -MEGACE 40MG40 MG/TAB PO; -NEURONTIN100 MG/CAP PO; -NOVLOG SQ; -OCEAN NASAL SPR45 ML NS; -PREDNISONE20 MG PO; -SENEXON-S 50-81 EACH PO; -TOPROL XL 25MG25 MG PO; -ZOLOFT 50MG50 MG PO
[2020-12-27 11:25] LABS: BASO % 0.2 % (0.0-2.0); EOS % 0.3 % (0-4.0); GRAN # 10.3 (1.4-6.5); GRAN % 87.6 % (42.2-75.2); LYMPH # 0.6 (1.2-3.4); LYMPH % 5.3 % (20.0-51.0); MEAN CELL VOLUME 86 fl (80.0-100.0); MEAN CORPUSCULAR HGB CONC 32 g/dl (33.0-37.0); MEAN PLATELET VOLUME 8.7 fl (7.4-10.4); MONO # 0.6 (0.1-0.6); MONO % 5.3 % (1.7-9.3); PLATELET COUNT 341 K/mm3 (130-400); RED BLOOD COUNT 3.28 M/mm3 (4.20-5.60); REDCELL DISTRIBUTION WIDTH-CV 15.5 % (11.5-14.5)
[2020-12-27 11:26] LABS: HEMATOCRIT 28.1 % (42.0-52.0); HEMOGLOBIN 8.9 g/dl (13.5-18.0); MEAN CORPUSCULAR HEMOGLOBIN 27 pg (27.0-31.0)
[2020-12-27 11:38] LABS: ALBUMIN 3.5 gm/dL (3.5-5.0); BILIRUBIN,TOTAL 0.5 mg/dL (0.0-1.0); CALCIUM 9.2 mg/dL (8.4-10.2); CREATININE, serum 2.36 (0.66-1.25); POTASSIUM 3.5 mmol/L (3.4-5.0)
[2020-12-27 12:50] LABS: COLLECTION METHOD CLEAN CATCH
[2020-12-27 14:15] LABS: PH 6 (5-8); SQUAMOUS EPITHELIAL 0-2 /hpf; URINE APPEARANCE Clear; URINE BACTERIA None Seen /hpf; URINE BILIRUBIN Negative (NEGATIVE); URINE BLOOD Negative (NEGATIVE); URINE COLOR Yellow; URINE GLUCOSE Negative (NEGATIVE); URINE KETONE Negative (NEGATIVE); URINE LEUKOCYTE ESTERASE Trace (NEGATIVE); URINE NITRATE Negative (NEGATIVE); URINE PROTEIN(semi-quant) 2+ (NEGATIVE); URINE UROBILINOGEN Negative (NEGATIVE)
[2020-12-27 17:51] LABS: CALCIUM 8.9 mg/dL (8.4-10.2); CREATININE, serum 2.21 (0.66-1.25); POTASSIUM 3.8 mmol/L (3.4-5.0)
--- NOTE | 2020-12-27 19:20 | NUR ---
LAYING IN BED, RESTING COMFORTABLY, AT BEDSIDE, ALERT, ORIENTED X 4, WEARS GLASSES, POOR APPETITE, UPDATED ON PLAN OF CARE, CALL LISHA W/I SAIDA.
[2020-12-27] MEDS ORDERED: ZOLOFT 50MG50 MG PO (19:28)
[2020-12-27 19:53] VITALS: BP 114/57; PULSE 73; TEMP 97.5
[2020-12-27 20:07] LABS: SQUAMOUS EPITHELIAL None Seen /hpf; URINE BACTERIA None Seen /hpf; URINE RBC 0-2 /hpf
[2020-12-28] VITALS (7 sets, daily range): BP systolic 97–122; BP diastolic 46–65; PULSE 72–92; TEMP 97.4–98.1
[2020-12-28 07:12] LABS: BASO % 0.2 % (0.0-2.0); EOS # 0.1 (0.0-0.7); EOS % 0.7 % (0-4.0); GRAN # 10.2 (1.4-6.5); GRAN % 83.8 % (42.2-75.2); HEMATOCRIT 27.5 % (42.0-52.0); HEMOGLOBIN 8.5 g/dl (13.5-18.0); LYMPH # 0.9 (1.2-3.4); LYMPH % 7.4 % (20.0-51.0); MEAN CELL VOLUME 88 fl (80.0-100.0); MEAN CORPUSCULAR HEMOGLOBIN 27 pg (27.0-31.0); MEAN CORPUSCULAR HGB CONC 31 g/dl (33.0-37.0); MEAN PLATELET VOLUME 9.3 fl (7.4-10.4); MONO # 0.8 (0.1-0.6); MONO % 6.5 % (1.7-9.3); PLATELET COUNT 350 K/mm3 (130-400); RED BLOOD COUNT 3.14 M/mm3 (4.20-5.60); REDCELL DISTRIBUTION WIDTH-CV 15.6 % (11.5-14.5)
--- NOTE | 2020-12-28 08:16 | NUR ---
Pt awake and alert upon entry, sitting in bed eating breakfast. Has C/O pain 06/30, medications received earlier provided relief. Shift assessment complete, left Pt in bed, call light in reach.
--- NOTE | 2020-12-28 10:20 | NUR ---
Initial visit; Patient thanked Forensic Technician for looking in on him and offering God's blessings.
--- NOTE | 2020-12-28 10:42 | NUR ---
leather production worker met with patient to discuss discharge plan. Patient lives in [place] with his significant other (Jennifer [phone]). Patient reports he is fully independent on all activities of daily living. Patient has been using a walker for the past week to be more" steady". Patient reports this is his first time using a walker. Patient's primary care physician is Dr. Teran and uses [facility] for a pharmacy. Patient reports no trouble affording medications. Patient believes he has a DPOA-HC established and think's it is Jennifer. Patient reports Jennifer and him have been together for 30 years so she would be his DPOA-HC, however he does have two grown children that live in different states.leather production worker educated patient that since they are not legally DPOA-HC would fall to his oldest child. Encouraged patient to have Jennifer bring a copy of DPOA-HC up to hospital to make a copy. Plan is to discharge home with significant other. *Discharge Plan: Hhome*
[2020-12-28 12:33] LABS: CREATININE, serum 2.23 (0.66-1.25); POTASSIUM 3.8 mmol/L (3.4-5.0)
--- NOTE | 2020-12-28 15:03 | NUR ---
PT is recommending home health. SINTIA met with the patient to discuss their recommendation. The patient reports that he already has home health. He could not recall what agency he has. SINTIA contacted the patient's life partner, Jennifer, in the patient's room and had her on speaker phone. Jennifer reports that the patient has services from [facility]. The patient and Jennifer would like to resume home health upon discharge. SINTIA contacted and faxed updated to Krystle at [facility]. *Discharge plan: home with life partner and home health*
[2020-12-29 04:14] VITALS: BP 115/56; PULSE 77; TEMP 98
[2020-12-29 07:10] LABS: CALCIUM 9.1 mg/dL (8.4-10.2); CREATININE, serum 2.03 (0.66-1.25)
[2020-12-29 07:39] VITALS: BP 119/56; PULSE 79; TEMP 97.7
[2020-12-29 08:27] LABS: MEAN CELL VOLUME 88 fl (80.0-100.0); MEAN CORPUSCULAR HGB CONC 31 g/dl (33.0-37.0); MEAN PLATELET VOLUME 9.3 fl (7.4-10.4); PLATELET COUNT 342 K/mm3 (130-400); REDCELL DISTRIBUTION WIDTH-CV 15.5 % (11.5-14.5)
[2020-12-29 08:29] LABS: HEMATOCRIT 26.3 % (42.0-52.0); HEMOGLOBIN 8.1 g/dl (13.5-18.0); MEAN CORPUSCULAR HEMOGLOBIN 27 pg (27.0-31.0)
[2020-12-29] MEDS ORDERED: NEURONTIN100 MG/CAP PO (11:25)
[2020-12-29 11:49] VITALS: BP 125/63; PULSE 88; TEMP 98
--- NOTE | 2020-12-29 13:44 | NUR ---
The patient is to discharge back home with his life partner today, 12/29, with home health services for snf/PT/OT through [facility]. SINTIA left a message with Krystle at [facility] and and faxed over d/c orders. No additional needs at this time.
--- NOTE | 2020-12-29 16:03 | NUR ---
Discharge orders discussed with the patient, instructed him to follow up with Onc/Urology/PCP/Nephrology as we have scheduled for him, IV and tele removed, instructed to take Neurontin as prescribed, script sent to pharmacy for him, leaving with , I escorted them out
== END 2020-12-29 18:59 | disposition home or self-care (01) ==
LOC: COL.ER 09:29 → MEDICAL 14:31
PROVIDERS: Emergency Medicine; Physician Assistant; ADMIT Internal Medicine
DX: I13.0 Hypertensive heart and chronic kidney disease with heart failure and stage 1 through stage 4 chronic kidney disease, or unspecified chronic kidney disease (principal); N17.9 Acute kidney failure, unspecified; N18.9 Chronic kidney disease, unspecified; I50.9 Heart failure, unspecified; E87.1 Hypo-osmolality and hyponatremia; D72.829 Elevated white blood cell count, unspecified; M54.89 Other dorsalgia; B02.29 Other postherpetic nervous system involvement; I25.10 Atherosclerotic heart disease of native coronary artery without angina pectoris; C34.90 Malignant neoplasm of unspecified part of unspecified bronchus or lung; J91.8 Pleural effusion in other conditions classified elsewhere; N13.30 Unspecified hydronephrosis; Z86.711 Personal history of pulmonary embolism; Z79.01 Long term (current) use of anticoagulants; Z92.3 Personal history of irradiation; Z92.21 Personal history of antineoplastic chemotherapy; Z79.899 Other long term (current) drug therapy; Z85.828 Personal history of other malignant neoplasm of skin; Z95.0 Presence of cardiac pacemaker; Z87.891 Personal history of nicotine dependence; Z79.82 Long term (current) use of aspirin
CPT/HCPCS: 99232-AI; G0378; J2270; J2405; J7030

== ENCOUNTER 2021-01-13 20:31 | Inpatient (IN) | payer MEDICARE, OTHER ==
[~2021-01-13] VITALS: Ht 172.7 cm; Wt 62.6 kg
[~2021-01-13 20:31] MED LIST changes: +NEURONTIN100 MG/CAP PO; +ZOLOFT 50MG50 MG PO
[2021-01-13 20:51] LABS: BASO % 0.2 % (0.0-2.0); EOS % 0.3 % (0-4.0); GRAN # 9.1 (1.4-6.5); GRAN % 84.2 % (42.2-75.2); LYMPH # 0.8 (1.2-3.4); LYMPH % 7.7 % (20.0-51.0); MEAN CELL VOLUME 83 fl (80.0-100.0); MEAN CORPUSCULAR HGB CONC 32 g/dl (33.0-37.0); MEAN PLATELET VOLUME 9.1 fl (7.4-10.4); MONO # 0.7 (0.1-0.6); MONO % 6.5 % (1.7-9.3); PLATELET COUNT 310 K/mm3 (130-400); RED BLOOD COUNT 3.14 M/mm3 (4.20-5.60); REDCELL DISTRIBUTION WIDTH-CV 15.9 % (11.5-14.5)
[2021-01-13 20:52] LABS: HEMOGLOBIN 8.3 g/dl (13.5-18.0); MEAN CORPUSCULAR HEMOGLOBIN 26 pg (27.0-31.0)
[2021-01-13 20:57] LABS: ALBUMIN 3.1 gm/dL (3.5-5.0); BILIRUBIN,TOTAL 0.1 mg/dL (0.0-1.0); CALCIUM 9.2 mg/dL (8.4-10.2); CREATININE, serum 2.05 (0.66-1.25); POTASSIUM 3.8 mmol/L (3.4-5.0); TOTAL PROTEIN 7.1 gm/dL (6.4-8.2)
[2021-01-13 21:08] LABS: TROPONIN-I 0.029 ng/mL (0.000-0.035)
[2021-01-13 21:25] LABS: MAGNESIUM 1.9 mg/dL (1.6-2.3)
[2021-01-13 22:58] VITALS: BP 111/92; PULSE 112
[2021-01-13 23:08] LABS: COLLECTION METHOD CLEAN CATCH
[2021-01-13 23:19] LABS: MUCOUS Present /lpf; PH 6 (5-8); SQUAMOUS EPITHELIAL None Seen /hpf; URINE APPEARANCE Hazy; URINE BACTERIA None Seen /hpf; URINE BILIRUBIN Negative (NEGATIVE); URINE BLOOD 1+ (NEGATIVE); URINE COLOR Yellow; URINE GLUCOSE 1+ (NEGATIVE); URINE KETONE Negative (NEGATIVE); URINE LEUKOCYTE ESTERASE 3+ (NEGATIVE); URINE NITRATE Negative (NEGATIVE); URINE PROTEIN(semi-quant) 1+ (NEGATIVE); URINE UROBILINOGEN Negative (NEGATIVE)
[2021-01-14] VITALS (9 sets, daily range): BP systolic 107–139; BP diastolic 59–81; PULSE 93–126; TEMP 97.9–98.6
[2021-01-14 00:52] LABS: INR 2.3 (0.8-3.0)
[2021-01-14] MEDS ORDERED: LEVAQUIN 2250 MG/TAB PO (01:20)
--- NOTE | 2021-01-14 02:45 | NUR ---
Admitted to medical floor from ER with diagnosis of UTI/weakness/dizziness,, alert/oriented, pleasant- states having some pain to back from past HX of shingles-- will give Cascade as ordered,,Did void 150cc per urinal.Lung sounds with coarse crackles LLL, Tele on. IV fluids of NS at 75cc/hr.
--- NOTE | 2021-01-14 05:36 | NUR ---
Quiet night, no changes,, temp 99.0- has been sleeping well
[2021-01-14 08:26] LABS: BASO % 0.4 % (0.0-2.0); EOS # 0.1 (0.0-0.7); EOS % 0.7 % (0-4.0); GRAN # 6.8 (1.4-6.5); GRAN % 81.4 % (42.2-75.2); LYMPH # 0.7 (1.2-3.4); LYMPH % 8.7 % (20.0-51.0); MEAN CELL VOLUME 85 fl (80.0-100.0); MEAN CORPUSCULAR HGB CONC 30 g/dl (33.0-37.0); MEAN PLATELET VOLUME 8.9 fl (7.4-10.4); MONO # 0.6 (0.1-0.6); MONO % 7.7 % (1.7-9.3); PLATELET COUNT 297 K/mm3 (130-400); RED BLOOD COUNT 2.88 M/mm3 (4.20-5.60)
[2021-01-14 08:27] LABS: HEMATOCRIT 24.6 % (42.0-52.0); HEMOGLOBIN 7.4 g/dl (13.5-18.0); MEAN CORPUSCULAR HEMOGLOBIN 26 pg (27.0-31.0)
[2021-01-14 08:42] LABS: CALCIUM 9.1 mg/dL (8.4-10.2); CREATININE, serum 2.04 (0.66-1.25); POTASSIUM 4.1 mmol/L (3.4-5.0)
--- NOTE | 2021-01-14 10:55 | NUR ---
Patient resting in bed. Patient is experiencing some nasal dryness with bleeding. Hospitalist was notified. Patient also experiecing some pain in his right side. Patient was given PRN norco.
--- NOTE | 2021-01-14 15:56 | NUR ---
graphic pre press trades worker met with patient to discuss discharge planning. Patient states he lives with his and plans to return upon discharge. Patient's primary care provider is Dr Teran. Patient states he has been independent with his activities of daily living and does not drive. Worker left message with patient's life partner, Jennifer [phone] to call.
[2021-01-14 16:30] LABS: ARTERIAL BLD GAS O2 SATURATION 98.8 % (92-100); ARTERIAL BLD GAS TCO2 CT 23.5; ARTERIAL BLOOD GAS BASE EXCESS -0.3 (-2-2); ARTERIAL BLOOD GAS HCO3 22.6 meq/L (22-26); ARTERIAL BLOOD GAS PCO2 29.4 mmHg (35-45)
--- NOTE | 2021-01-14 18:17 | NUR ---
Patient c/o SOB multiple times. This RN placed him on 2L of O2 via NC. Sats were fine at 95%. Patient still c/o SOB. Provider notified and ordered EKG and ABG. CXR was also completed. Patient stated his pain was 6/10, and given PRN norco.
--- NOTE | 2021-01-14 22:37 | NUR ---
PT RESTING COMFORTABLY IN BED. EVENING MEDICATIONS GIVEN. PT DENIES ANY NEEDS AT THIS TIME. LUNG AUSCULTATED AND SOUNDS CLEAR. WILL CONTINUE TO MONITOR.
[2021-01-15 03:19] VITALS: BP 120/71; PULSE 95; TEMP 98.3
--- NOTE | 2021-01-15 05:29 | NUR ---
PT HAD A RESTFUL NIGHT. DENIES ANY NEEDS AT THIS TIME. WILL CONTINUE TO MONITOR.
[2021-01-15 06:58] LABS: BASO % 0.2 % (0.0-2.0); EOS # 0.1 (0.0-0.7); EOS % 0.9 % (0-4.0); GRAN # 7.5 (1.4-6.5); GRAN % 81.1 % (42.2-75.2); LYMPH # 0.9 (1.2-3.4); MEAN CELL VOLUME 87 fl (80.0-100.0); MEAN CORPUSCULAR HGB CONC 30 g/dl (33.0-37.0); MEAN PLATELET VOLUME 8.9 fl (7.4-10.4); MONO # 0.6 (0.1-0.6); MONO % 6.7 % (1.7-9.3); PLATELET COUNT 295 K/mm3 (130-400); RED BLOOD COUNT 2.91 M/mm3 (4.20-5.60)
[2021-01-15 06:59] LABS: HEMATOCRIT 25.4 % (42.0-52.0); HEMOGLOBIN 7.7 g/dl (13.5-18.0); MEAN CORPUSCULAR HEMOGLOBIN 26 pg (27.0-31.0)
--- NOTE | 2021-01-15 07:00 | NUR ---
Report with ERIKA Nguyen. Pt resting in bed, awake and alert, denies needs at this time. Call light in reach.
[2021-01-15 07:11] LABS: CALCIUM 9.1 mg/dL (8.4-10.2); POTASSIUM 3.7 mmol/L (3.4-5.0)
[2021-01-15 08:06] VITALS: BP 120/64; PULSE 102; TEMP 97.7
--- NOTE | 2021-01-15 08:10 | NUR ---
Assessment complete. Pt sitting up in bed for breakfast, A&O x 4, reports feeling short of breath with O2 at 2 L/min via NC. Breath sounds CTAB, slightly diminished in bases bilat. This nurse encourages pt to focus on slow deep breaths in through the nose and out through the mouth. Pt having occasional productive cough with thick yellow sputum. Pain reported between shoulder blades. No further needs reported. Call light in reach.
--- NOTE | 2021-01-15 09:10 | NUR ---
Pt reports shortness of breath has increased with low back pain greatly increased as well. Pt continually repeating "oh, I gotta have something, hurry, I gotta have something." O2 sat levels around 100% on 1.5 L/min via NC. PRN oral pain medication has been administered. Provider notified and order received.
[2021-01-15 11:20] LABS: IRON,SERUM 16 ug/dL (35-150)
[2021-01-15 11:30] LABS: TOTAL IRON BINDING CAPACITY 182 ug/dL (261-462)
[2021-01-15 12:07] VITALS: BP 112/58; PULSE 111; TEMP 98.1
[2021-01-15 16:19] VITALS: BP 127/72; PULSE 93; TEMP 98.1
--- NOTE | 2021-01-15 19:00 | NUR ---
Report with ERIKA Nguyen. Pt reports nausea while trying to eat supper and increasing back pain. PRN pain and nausea medications administered per orders and pt's request. No further needs reported. Call light in reach.
[2021-01-15 20:17] VITALS: BP 116/65; PULSE 103; TEMP 98.1
--- NOTE | 2021-01-15 21:39 | NUR ---
PT RESTING IN BED. EVENING MEDICATIONS GIVEN. PT HAS BEEN USING SALINE NASAL SPRAY AT BEDSIDE FOR HIS DRY BLOODY NOSE R/T HIS OXYGEN. THE PT WAS ON 1L NC AND SATURATION HAS BEEN 99-100% CONSISTENTLY. THIS NURSE INSTRUCTED PT HE COULD REMOVE THE OXYGEN AND KEEP IT AT BEDSIDE IN CASE HE STARTED TO FEEL SOB. PT HAD BLOWN OUT A LARGE BLOOD CLOT INTO A TISSUE DO TO THE IRRITATION. PT HAS IRON RUNNING THROUGH IV AT THIS TIME. WILL CONTINUE TO MONITOR.
[2021-01-15 23:40] VITALS: BP 119/66; PULSE 114; TEMP 97.6
--- NOTE | 2021-01-16 05:55 | NUR ---
PT HAD A RESTFUL NIGHT. DENIES ANY NEEDS AT THIS TIME. WILL CONTINUE TO MONITOR.
--- NOTE | 2021-01-16 06:24 | NUR ---
PT GIVEN WARM PRUNE JUICE TO HELP WITH BOWEL MOVEMENTS.
--- NOTE | 2021-01-16 07:00 | NUR ---
Report with ERIKA Nguyen. Pt resting in bed, awake and alert, denies needs at this time. Call light in reach. Bed alarm on.
[2021-01-16 07:22] LABS: BASO % 0.2 % (0.0-2.0); EOS # 0.1 (0.0-0.7); EOS % 0.6 % (0-4.0); GRAN # 8.3 (1.4-6.5); LYMPH % 9.4 % (20.0-51.0); MEAN CELL VOLUME 87 fl (80.0-100.0); MEAN CORPUSCULAR HGB CONC 30 g/dl (33.0-37.0); MONO # 0.7 (0.1-0.6); MONO % 6.7 % (1.7-9.3); PLATELET COUNT 295 K/mm3 (130-400); RED BLOOD COUNT 2.96 M/mm3 (4.20-5.60); REDCELL DISTRIBUTION WIDTH-CV 16.4 % (11.5-14.5)
[2021-01-16 07:30] LABS: HEMATOCRIT 25.8 % (42.0-52.0); HEMOGLOBIN 7.8 g/dl (13.5-18.0); MEAN CORPUSCULAR HEMOGLOBIN 26 pg (27.0-31.0)
[2021-01-16 07:43] LABS: CREATININE, serum 2.01 (0.66-1.25); POTASSIUM 3.9 mmol/L (3.4-5.0)
[2021-01-16 07:45] VITALS: BP 128/68; PULSE 115; TEMP 97.7
--- NOTE | 2021-01-16 08:00 | NUR ---
Assessment complete. Pt sitting up in bed, A&O x 3, reports pain to low right back 7 out of 10 and increasing shortness of breath. O2 sats 98% on room air and pt reports the O2 did not relieve his shortness of breath before. PRN pain medication offered and received. Pt also reports not having a BM for some time and is currently drinking prune juice. This nurse discusses the importance of working with physical therapy with pt so we can document his physical progression. Pt verbalizes understanding. No further needs reported. Call light in reach. Bed alarm on.
[2021-01-16 12:02] VITALS: BP 116/65; PULSE 100; TEMP 97.6
[2021-01-16 16:24] VITALS: BP 112/61; PULSE 114; TEMP 98.2
--- NOTE | 2021-01-16 19:26 | NUR ---
Report with ERIKA Garner. Pt resting in bed, denies needs at this time. POC for tomorrow reviewed with pt regarding possible discharge. Call light in reach. Bed alarm on.
[2021-01-16 19:35] VITALS: BP 118/70; PULSE 96; TEMP 98.2
--- NOTE | 2021-01-16 20:45 | NUR ---
Initial shift assessment done- pleasant, alert x3- states someone told him he may be going home tomorrow and pt states he is not well enough to go home-- states when he turns his head he is dizzy- talked with patient and informed him the doctor will talk about all his concerns . VSS.
[2021-01-16 23:24] VITALS: BP 125/72; PULSE 100; TEMP 98.2
[2021-01-17 03:51] VITALS: BP 130/66; PULSE 61; TEMP 98.5
--- NOTE | 2021-01-17 06:00 | NUR ---
Quiet night- VSS, voiding good amounts per urinal,, pt states still is having some dizziness when turning head or lifting head up and down.
--- NOTE | 2021-01-17 10:00 | NUR ---
PT was in working with pt. Pt only took a few steps and then sat back down on the bed. Pt appears to be weak, but also does not want to participate with therapy. Pt reports that he feels short of breath, O2 sats normal at this time
[2021-01-17 11:35] VITALS: BP 131/69; PULSE 100; TEMP 97.9
--- NOTE | 2021-01-17 12:07 | NUR ---
Dr corea at this time. Pt has complaints of feeling short of breath. Pt does have some crackles noted. New orders received at this time.
--- NOTE | 2021-01-17 13:15 | NUR ---
EKG completed, notified LENARD Hamilton of results
--- NOTE | 2021-01-17 13:48 | NUR ---
Pt recently had an EKG, rechecked vitals at this time. 129/69 with pulse 129. aware and in room. Awaiting new orders at this time
[2021-01-17 16:06] VITALS: BP 119/64; PULSE 98; TEMP 98.1
[2021-01-17 21:21] VITALS: BP 105/55; PULSE 112; TEMP 98.2
--- NOTE | 2021-01-17 22:37 | NUR ---
PT RESTING IN BED. EVENING MEDICATIONS GIVEN. PT STATES THE PAIN IS IN HIS RIGHT SHOULDER, BACK, AND SIDE. PT DENIES ANY NEEDS AT THIS TIME. WILL CONTINUE TO MONITOR .
--- NOTE | 2021-01-17 22:47 | NUR ---
REASSESSED PT PAIN AFTER RECEIVING NORCO. PT STATES IT'S AT AN 8/10 BUT DOES NOT APPEAR TO BE IN MUCH DISCOMFORT. PT SAYS IF HE LAYS ON HIS BACK JUST RIGHT THEN THE PAIN IS NOT THAT BAD AND IT "COMES AND GOES". WILL CONTINUE TO MONITOR.
[2021-01-18] VITALS (10 sets, daily range): BP systolic 95–128; BP diastolic 47–71; PULSE 94–117; TEMP 97.4–98.5
--- NOTE | 2021-01-18 06:26 | NUR ---
PT HAD A RESTFUL NIGHT. PAIN WAS MANAGED MOST OF THE NIGHT WITHOUT PAIN MEDICATION. PT DENIES ANY NEEDS AT THIS TIME. WILL CONTINUE TO MONITOR.
[2021-01-18 07:30] LABS: BASO % 0.2 % (0.0-2.0); EOS # 0.1 (0.0-0.7); EOS % 0.4 % (0-4.0); GRAN # 11.8 (1.4-6.5); GRAN % 87.3 % (42.2-75.2); LYMPH # 0.9 (1.2-3.4); LYMPH % 6.5 % (20.0-51.0); MEAN CELL VOLUME 89 fl (80.0-100.0); MEAN CORPUSCULAR HGB CONC 30 g/dl (33.0-37.0); MEAN PLATELET VOLUME 9.2 fl (7.4-10.4); MONO # 0.6 (0.1-0.6); MONO % 4.6 % (1.7-9.3); PLATELET COUNT 327 K/mm3 (130-400); RED BLOOD COUNT 3.12 M/mm3 (4.20-5.60); REDCELL DISTRIBUTION WIDTH-CV 16.6 % (11.5-14.5)
[2021-01-18 07:31] LABS: HEMATOCRIT 27.6 % (42.0-52.0); HEMOGLOBIN 8.4 g/dl (13.5-18.0); MEAN CORPUSCULAR HEMOGLOBIN 27 pg (27.0-31.0)
[2021-01-18 07:37] LABS: CALCIUM 9.7 mg/dL (8.4-10.2); CREATININE, serum 2.23 (0.66-1.25); POTASSIUM 4.1 mmol/L (3.4-5.0)
--- NOTE | 2021-01-18 08:21 | NUR ---
SCHEDULED MEDICATIONS GIVEN. SHIFT ASSESSMENT PREFORMED. PATIENT C/O OF 8/10 ACHING PAIN IN BACK. PRN NORCO GIVEN. PATIENT ALSO C/O SOB. PATIENT CURRENLTY REQUIRING 3L OF O2 VIA NASAL CANNULA. SATS STABLE. PATIENT DENIENS ANY FURTHER PAIN, DISCOMFORT, OR NEEDS AT THIS TIME. CALL LIGHT IN REACH. FALL PRECAUTIONS IN PLACE. VSS.
[2021-01-18 11:19] LABS: PROTHROMBIN TIME 22.5 SECONDS (9.7-12.8)
--- NOTE | 2021-01-18 12:13 | NUR ---
greenhouse worker spoke with and provided information on advance directives. and worker discussed prison and doesn't want patient in a facility as he is a cancer patient. Patient is currently utilizing [facility] home health and will resume this upon discharge. will visit with patient and worker today to see if advance directivces can be completed.
--- NOTE | 2021-01-18 15:47 | NUR ---
farmworker bulbs met with patient and his life partner, Jennifer, and assisted with competion of a durable power of district attorney for health care. Patient verbalized what the durable power of district attorney was and it's meaning. Copies provided to Kelseyjw and a copy placed on patient's medical record.
--- NOTE | 2021-01-18 18:46 | NUR ---
PATIENT HAS HAD AN OK DAY. CURRENTLY REQUIRING 2 L OF O2 VIA NASAL CANNULA. HAS NOT C/O ANY PAIN, DISCOMFORT, OR FURTHER NEEDS. [place] CONSENT SIGNED AND ON THE CHART. VSS. CALL LIGHT IN REACH. FALL PRECAUTIONS IN PLACE.
--- NOTE | 2021-01-18 20:49 | NUR ---
PT RESTING IN BED. EVENING MEDICATIONS GIVEN. PT LUNGS AUSCULTATED WITH COARSE CRACKLES IN LEFT BASE. PT WAS COUGHING UP SOME THIN, CLEAR SPUTUM DURING ASSESSMENT. PT STATES THAT OCCASIONALLY HIS SPUTUM IS MORE OF A MILKY COLOR. PT STATES HE HAS PAIN IN HIS RIGHT SHOULDER AND BACK. PT ALSO COMPLAINS OF A NEW ONSET OF PAIN UNDER HIS RIBS THAT FEELS LIKE CRAMPING. PT DENIES ANY NEEDS AT THIS TIME. WILL CONTINUE TO MONITOR.
[2021-01-19] VITALS (7 sets, daily range): BP systolic 100–122; BP diastolic 45–65; PULSE 64–102; TEMP 97.4–98.6
--- NOTE | 2021-01-19 05:35 | NUR ---
PT STATES HE DID NOT GET MUCH LAST NIGHT DUE TO US "BOTHERING HIM ABOUT EVERY HOUR." DENIES ANY NEEDS AT THIS TIME. WILL CONTINUE TO MONITOR.
[2021-01-19 07:10] LABS: BASO % 0.2 % (0.0-2.0); EOS # 0.1 (0.0-0.7); EOS % 0.4 % (0-4.0); GRAN # 11.8 (1.4-6.5); GRAN % 86.6 % (42.2-75.2); HEMATOCRIT 26.4 % (42.0-52.0); LYMPH # 0.9 (1.2-3.4); LYMPH % 6.5 % (20.0-51.0); MEAN CELL VOLUME 87 fl (80.0-100.0); MEAN CORPUSCULAR HEMOGLOBIN 26 pg (27.0-31.0); MEAN CORPUSCULAR HGB CONC 30 g/dl (33.0-37.0); MEAN PLATELET VOLUME 9.2 fl (7.4-10.4); MONO # 0.7 (0.1-0.6); MONO % 5.3 % (1.7-9.3); PLATELET COUNT 310 K/mm3 (130-400); RED BLOOD COUNT 3.03 M/mm3 (4.20-5.60); REDCELL DISTRIBUTION WIDTH-CV 16.8 % (11.5-14.5)
[2021-01-19 07:17] LABS: CALCIUM 9.6 mg/dL (8.4-10.2); CREATININE, serum 2.36 (0.66-1.25); POTASSIUM 4.2 mmol/L (3.4-5.0)
--- NOTE | 2021-01-19 08:42 | NUR ---
SCHEDULED MEDICATIONS GIVEN. SHIFT ASSESSMENT PREFORMED. PATIENT CURRENTLY REQUIRING 3L OF 02, SATING 99%. NO S/S OF PAIN OR DISCOMFORT AT THIS TIME. PATIENT A&O. PATIENT DENIES ANY FURTHER NEEDS AT THIS TIME. CALL LIGHT IN REACH. FALL PRECAUTIONS IN PLACE.
[2021-01-19 10:23] LABS: COLLECTION METHOD CLEAN CATCH
[2021-01-19 10:41] LABS: MUCOUS Present /lpf; PH 7 (5-8); SQUAMOUS EPITHELIAL None Seen /hpf; URINE APPEARANCE Hazy; URINE BACTERIA None Seen /hpf; URINE BILIRUBIN Negative (NEGATIVE); URINE BLOOD 1+ (NEGATIVE); URINE COLOR Yellow; URINE GLUCOSE Negative (NEGATIVE); URINE KETONE Negative (NEGATIVE); URINE LEUKOCYTE ESTERASE 3+ (NEGATIVE); URINE NITRATE Negative (NEGATIVE); URINE PROTEIN(semi-quant) 2+ (NEGATIVE); URINE UROBILINOGEN Negative (NEGATIVE)
--- NOTE | 2021-01-19 18:00 | NUR ---
PATIENT HAS HAD AN OK DAY. VSS. DENIES ANY PAIN, DISCOMFORT, SOA, OR FURTHER NEEDS AT THIS TIME. CALL LIGHT IN REACH. FALL PRECAUTIONS IN PLACE.
--- NOTE | 2021-01-19 22:32 | NUR ---
PT RESTING IN BED. EVENING MEDICATIONS GIVEN. PT STATES HE HAS SOME PAIN IN HIS R SHOULDER, BACK, AND ABOMEN. PT LUNGS SOUNDS AUSCULTATED WITH COARSE CRACKLES. PT DENIES ANY NEEDS AT THIS TIME. WILL CONTINUE TO MONITOR.
[2021-01-20 03:36] VITALS: BP 122/58; PULSE 96; TEMP 97.3
[2021-01-20 06:18] LABS: BASO % 0.3 % (0.0-2.0); EOS % 0.3 % (0-4.0); GRAN # 13.4 (1.4-6.5); LYMPH # 0.9 (1.2-3.4); LYMPH % 5.7 % (20.0-51.0); MEAN CELL VOLUME 86 fl (80.0-100.0); MEAN CORPUSCULAR HGB CONC 31 g/dl (33.0-37.0); MEAN PLATELET VOLUME 9.4 fl (7.4-10.4); MONO # 0.9 (0.1-0.6); MONO % 5.9 % (1.7-9.3); PLATELET COUNT 305 K/mm3 (130-400); REDCELL DISTRIBUTION WIDTH-CV 16.9 % (11.5-14.5)
[2021-01-20 06:31] LABS: INR 1.7 (0.8-3.0)
[2021-01-20 06:35] LABS: HEMATOCRIT 25.8 % (42.0-52.0); HEMOGLOBIN 7.9 g/dl (13.5-18.0); MEAN CORPUSCULAR HEMOGLOBIN 26 pg (27.0-31.0)
[2021-01-20 06:37] LABS: ALBUMIN 3.2 gm/dL (3.5-5.0); BILIRUBIN,TOTAL 0.4 mg/dL (0.0-1.0); CALCIUM 9.8 mg/dL (8.4-10.2); CREATININE, serum 2.27 (0.66-1.25); MAGNESIUM 2.5 mg/dL (1.6-2.3); POTASSIUM 3.9 mmol/L (3.4-5.0)
[2021-01-20 08:00] VITALS: BP 121/62; PULSE 95; TEMP 97.6
--- NOTE | 2021-01-20 09:23 | NUR ---
Rec'd report from primary nurse. Will be taking care of patient from approximately [id number].
[2021-01-20 12:00] VITALS: BP 119/69; PULSE 98; TEMP 96.8
--- NOTE | 2021-01-20 14:02 | NUR ---
Primary nurse was assisted with [id number] patient care by [employer] student Jo Ann House and [employer] instructor Essie Gage MSN, RN
--- NOTE | 2021-01-20 14:18 | NUR ---
shore worker met with patient and , Jennifer, and discussed recommendation of skilled care. Worker gave referral to [facility] and [facility]. Spouse's preference is [facility]. [facility] receiving [facility]. Referrals to [facility] and [facility] [place] for skilled care.
[2021-01-20 17:06] VITALS: BP 126/65; PULSE 102; TEMP 98
[2021-01-20 20:00] VITALS: BP 113/62; PULSE 88; TEMP 98.6
--- NOTE | 2021-01-20 22:55 | NUR ---
Patient A/O x3. Patient denies SOB or dyspnea. Patient currently on room air. No acute respiratory distress noted. Rivera catheter patent and draining yellow urine. Scheduled meds given per MAR. Call light within reach. Will continue to monitor.
[2021-01-21] VITALS: BP 111/61; PULSE 87; TEMP 98.3
[2021-01-21 04:00] VITALS: BP 103/61; PULSE 79; TEMP 97.8
--- NOTE | 2021-01-21 07:21 | NUR ---
[facility] will accept with confirmation that there will be no cancer treatments during stay and a negative covid test.
[2021-01-21 07:23] VITALS: BP 119/62; PULSE 87; TEMP 98.1
[2021-01-21 07:56] LABS: CALCIUM 10.1 mg/dL (8.4-10.2); CREATININE, serum 2.42 (0.66-1.25); MAGNESIUM 2.7 mg/dL (1.6-2.3); POTASSIUM 3.8 mmol/L (3.4-5.0)
[2021-01-21 08:15] LABS: BASO % 0.1 % (0.0-2.0); GRAN # 13.1 (1.4-6.5); GRAN % 89.2 % (42.2-75.2); LYMPH # 0.8 (1.2-3.4); LYMPH % 5.4 % (20.0-51.0); MEAN CELL VOLUME 89 fl (80.0-100.0); MEAN CORPUSCULAR HGB CONC 30 g/dl (33.0-37.0); MEAN PLATELET VOLUME 9.5 fl (7.4-10.4); MONO # 0.6 (0.1-0.6); MONO % 4.4 % (1.7-9.3); PLATELET COUNT 298 K/mm3 (130-400); RED BLOOD COUNT 2.95 M/mm3 (4.20-5.60)
[2021-01-21 08:31] LABS: HEMATOCRIT 26.1 % (42.0-52.0); HEMOGLOBIN 7.9 g/dl (13.5-18.0); MEAN CORPUSCULAR HEMOGLOBIN 27 pg (27.0-31.0)
[2021-01-21 12:51] VITALS: BP 112/57; PULSE 99; TEMP 96.8
--- NOTE | 2021-01-21 12:53 | NUR ---
Jessica, social human services assistants, and I met with pt's to discuss hospice services. listened very attentively and asked good questions. She was wanting to talk with other family members and felt she needed more time to make this decision. She was on the phone when I left her.
--- NOTE | 2021-01-21 13:27 | NUR ---
SINTIA attended clinical rounds. The patient's , Jennifer, was at bedside. The hospitalist informed the patient and his of the patient's poor prognosis and how Dr. Ramires has no plans for chemo in the near future, due to not being able to tolerate it. The hospitalist introduced hospice and discussed SNF vs hospice. SINTIA and palliative care nurse, Ida, then followed up with the patient's . His reports that she is unable to take care of the patient at home and that she has noticed the patient's recent decline. Kelsey would like some time to talk to her family first before making a decision on hospice vs SNF. SINTIA notified and faxed updates to Sita at [facility]. *Discharge plan: [facility] SNF vs hospice*
--- NOTE | 2021-01-21 14:01 | NUR ---
Primary nurse was assisted with [phone] patient care by [employer] student Jo Ann House and [employer] instructor Essie Gage MSN, RN
[2021-01-21 15:45] VITALS: BP 122/69; PULSE 95; TEMP 98.3
[2021-01-21 20:10] VITALS: BP 122/53; PULSE 95; TEMP 98.3
[2021-01-22 00:37] VITALS: BP 122/61; PULSE 89; TEMP 98.8
[2021-01-22 03:56] VITALS: BP 108/60; PULSE 94; TEMP 98.1
--- NOTE | 2021-01-22 05:19 | NUR ---
PT HAD UNEVENTFUL NIGHT. ALL NEEDS MET.
[2021-01-22 07:05] LABS: BASO % 0.2 % (0.0-2.0); EOS % 0.2 % (0-4.0); GRAN # 12.8 (1.4-6.5); GRAN % 85.6 % (42.2-75.2); LYMPH # 1.1 (1.2-3.4); LYMPH % 7.2 % (20.0-51.0); MEAN CELL VOLUME 85 fl (80.0-100.0); MEAN CORPUSCULAR HGB CONC 31 g/dl (33.0-37.0); MEAN PLATELET VOLUME 9.3 fl (7.4-10.4); MONO # 0.9 (0.1-0.6); MONO % 5.9 % (1.7-9.3); PLATELET COUNT 337 K/mm3 (130-400); RED BLOOD COUNT 2.99 M/mm3 (4.20-5.60); REDCELL DISTRIBUTION WIDTH-CV 16.9 % (11.5-14.5)
[2021-01-22 07:14] LABS: CALCIUM 10.1 mg/dL (8.4-10.2); CREATININE, serum 2.26 (0.66-1.25); MAGNESIUM 2.6 mg/dL (1.6-2.3); POTASSIUM 3.9 mmol/L (3.4-5.0)
[2021-01-22 07:18] LABS: HEMATOCRIT 25.5 % (42.0-52.0); MEAN CORPUSCULAR HEMOGLOBIN 27 pg (27.0-31.0)
[2021-01-22 07:37] VITALS: BP 118/50; PULSE 95; TEMP 98
--- NOTE | 2021-01-22 12:01 | NUR ---
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
[2021-01-22 12:15] VITALS: BP 118/54; BP 123/64; PULSE 70; PULSE 90; TEMP 97.9; TEMP 98.5
--- NOTE | 2021-01-22 12:52 | NUR ---
SINTIA update: Spoke with family about decision. Patient and reports that they wish to go to [facility] for rehad. Spoke with to confirmed wih that they are not going to [facility]. agreed. SINTIA spoke with Sharath at [facility] and patient can go tomorrow and is excepted with update and CV test. SINTIA faxed updates.
[2021-01-22 17:45] VITALS: BP 126/67; PULSE 91; TEMP 97.9
[2021-01-22 20:43] VITALS: BP 136/71; PULSE 88; TEMP 97.8
--- NOTE | 2021-01-22 22:59 | NUR ---
PT ALERT AND ORIENTED IN ROOM. PT DENIES PAIN AT THIS TIME. DIMINISHED LUNG SOUNDS NOTED IN RIGHT MIDDLE AND LOWER LOBES, CLEAR IN LEFT SIDE ALL JOSHUA. PT DENIES SOA. PT HAD GENERALIZED BRUISING OVER BILATERAL ARMS. PT PRESENT AT BEDSIDE. NO OTHER NEEDS AT THIS TIME. PT CALL LIGHT WITHIN REACH.
[2021-01-23 00:08] VITALS: BP 142/79; PULSE 90; TEMP 98.1
[2021-01-23 00:26] VITALS: BP 134/77
--- NOTE | 2021-01-23 00:31 | NUR ---
BP NOTED TO BE SLIGHTLY ELEVATED, RECHECKED AT THIS TIME. 133/77
[2021-01-23 03:42] VITALS: BP 128/73; PULSE 95; TEMP 97.7
--- NOTE | 2021-01-23 03:55 | NUR ---
DYNAMAP RECORDING PULSE AT 104, THIS RN TOOK RADIAL PULSE FOR FULL MINUTE, HR OF 95.
--- NOTE | 2021-01-23 04:59 | NUR ---
PT CONTINUING ON PLAN OF CARE. PT CONTINUING TO HAVE OUTPUT VIA BAUTISTA CATHTER. PT EDUCATED ON CATHTER CARE, PT WANTED TO PERFORM SELF CATHTER CARE UNDER SUPERVISION OF RN. PT EXPRESSED BACK PAIN 4/10 INBETWEEN SHOULDER BLADES, MANAGED WITH PRN TYLENOL. LENARD ARAIZA NOTIFIED OF BACK PAIN. EKG ORDERED. NO SIGNIFICANT CHANGES NOTED. PT FREE FROM INJURY THIS SHIFT.
[2021-01-23 08:07] VITALS: BP 108/56; PULSE 91; TEMP 98.4
--- NOTE | 2021-01-23 09:27 | NUR ---
Assessment completed, alert/oriented, vital signs stable, denies pain this morning, no resp.difficulty noted and lungs are CTA/ diminished, heart RRR/paced on tele, driscoll patent with clear yellow urine, reminded him of fluid restriction, he is having good UOP but also likes to drink a lot of fluid, encouraged patient to work with PT/Ot today as he refused yesterday but is planning to go to SNF, he is sitting up eating breakfst, meds given, he denies needs at [facility]
[2021-01-23] MEDS ORDERED: TOPROL XL 25MG25 MG PO (10:06)
[2021-01-23] MEDS ORDERED: FERROUS SU325 MG/TAB PO (10:06)
[2021-01-23] MEDS ORDERED: DEMADEX5 MG PO (10:07)
[2021-01-23] MEDS ORDERED: TYLENOL 325MG325 MG PO (10:07)
[2021-01-23] MEDS ORDERED: DULCOLAX S10 MG/SUPP RC (10:08)
[2021-01-23] MEDS ORDERED: SENEXON-S 50-81 EACH PO (10:08)
[2021-01-23] MEDS ORDERED: LEADER CLE17 GM/Dose PO (10:08)
[2021-01-23] MEDS ORDERED: OCEAN NASAL SPR45 ML NS (10:08)
[2021-01-23] MEDS ORDERED: PREDNISONE20 MG PO (10:09)
[2021-01-23] MEDS ORDERED: MEGACE 40MG40 MG/TAB PO (10:09)
[2021-01-23] MEDS ORDERED: LEVEMIR100 U/ML SQ (10:09)
[2021-01-23] MEDS ORDERED: NOVLOG SQ (10:09)
[2021-01-23] MEDS ORDERED: OMNICEF 300MG300 MG PO (10:13)
--- NOTE | 2021-01-23 10:56 | NUR ---
SW Update. Patient will transfer to [facility] SNF at 12-12:30 Staffed with nurse, nurse will attempt contact to notife of transfer. Fax DC order to [facility]. NF>
[2021-01-23 11:52] VITALS: BP 122/62; PULSE 98; TEMP 98.2
[2021-01-23 12:07] VITALS: BP 100/49; PULSE 96; TEMP 98.1
--- NOTE | 2021-01-23 12:45 | NUR ---
patient transferring to [facility] nursing facility, I notifid his at time of discharge, IV and tele removed prior to leaving, I attempted to call report to nursing staff and did not get an answer, patient leaving with [facility] transportation staff at this time
== END 2021-01-23 15:26 | DRG 871 ==
LOC: COL.ER 20:31 → MEDICAL 23:46
PROVIDERS: Emergency Medicine; Internal Medicine; Nurse Practitioner Family; Physician Assistant; ADMIT Internal Medicine
DX: A41.9 Sepsis, unspecified organism (principal); I50.43 Acute on chronic combined systolic (congestive) and diastolic (congestive) heart failure; J96.01 Acute respiratory failure with hypoxia; E87.1 Hypo-osmolality and hyponatremia; N17.9 Acute kidney failure, unspecified; N13.30 Unspecified hydronephrosis; I13.0 Hypertensive heart and chronic kidney disease with heart failure and stage 1 through stage 4 chronic kidney disease, or unspecified chronic kidney disease; B02.29 Other postherpetic nervous system involvement; G72.81 Critical illness myopathy; E44.0 Moderate protein-calorie malnutrition; R65.20 Severe sepsis without septic shock; Z95.0 Presence of cardiac pacemaker; D64.9 Anemia, unspecified; I25.10 Atherosclerotic heart disease of native coronary artery without angina pectoris; Z95.1 Presence of aortocoronary bypass graft; D50.0 Iron deficiency anemia secondary to blood loss (chronic); Z87.442 Personal history of urinary calculi; N18.30 Chronic kidney disease, stage 3 unspecified; E11.22 Type 2 diabetes mellitus with diabetic chronic kidney disease; I95.1 Orthostatic hypotension; Z86.718 Personal history of other venous thrombosis and embolism; Z86.711 Personal history of pulmonary embolism; E87.8 Other disorders of electrolyte and fluid balance, not elsewhere classified; Z20.822 Contact with and (suspected) exposure to COVID-19; Z79.82 Long term (current) use of aspirin
CPT/HCPCS: 99223-AI; 99232-AI; 99233-AI; 99239; A9284; J0692; J1756; J1815; J1940; J2060; J2270; J7030; J7050; J7120; J7512

== ENCOUNTER 2021-01-26 10:57 | Emergency (ER) | payer MEDICARE, OTHER ==
[~2021-01-26] VITALS: Ht 175.3 cm; Wt 61.4 kg
[~2021-01-26 10:57] MED LIST changes: +DEMADEX5 MG PO; +DULCOLAX S10 MG/SUPP RC; +FERROUS SU325 MG/TAB PO; +LEADER CLE17 GM/Dose PO; +LEVAQUIN 2250 MG/TAB PO; +LEVEMIR100 U/ML SQ; +MEGACE 40MG40 MG/TAB PO; +NOVLOG SQ; +OCEAN NASAL SPR45 ML NS; +PREDNISONE20 MG PO; +SENEXON-S 50-81 EACH PO; +TOPROL XL 25MG25 MG PO
[2021-01-26 11:05] VITALS: TEMP 97.6
[2021-01-26 11:21] LABS: BASO % 0.2 % (0.0-2.0); EOS % 0.2 % (0-4.0); GRAN # 14.4 (1.4-6.5); GRAN % 88.7 % (42.2-75.2); HEMATOCRIT 28.5 % (42.0-52.0); LYMPH # 0.8 (1.2-3.4); LYMPH % 4.7 % (20.0-51.0); MEAN CELL VOLUME 84 fl (80.0-100.0); MEAN CORPUSCULAR HEMOGLOBIN 27 pg (27.0-31.0); MEAN CORPUSCULAR HGB CONC 32 g/dl (33.0-37.0); MONO # 0.9 (0.1-0.6); MONO % 5.2 % (1.7-9.3); PLATELET COUNT 294 K/mm3 (130-400); RED BLOOD COUNT 3.38 M/mm3 (4.20-5.60); REDCELL DISTRIBUTION WIDTH-CV 17.2 % (11.5-14.5)
[2021-01-26 11:35] LABS: ALBUMIN 3.6 gm/dL (3.5-5.0); BILIRUBIN,TOTAL 0.6 mg/dL (0.0-1.0); CALCIUM 10.6 mg/dL (8.4-10.2); CREATININE, serum 1.78 (0.66-1.25); POTASSIUM 4.1 mmol/L (3.4-5.0); TOTAL PROTEIN 7.5 gm/dL (6.4-8.2)
[2021-01-26 12:28] VITALS: BP 116/66; PULSE 97
== END 2021-01-26 13:42 | disposition home or self-care (01) ==
LOC: COL.ER 10:57
PROVIDERS: Family Medicine
DX: E86.0 Dehydration (principal); I95.1 Orthostatic hypotension; C34.90 Malignant neoplasm of unspecified part of unspecified bronchus or lung; I25.10 Atherosclerotic heart disease of native coronary artery without angina pectoris; I13.0 Hypertensive heart and chronic kidney disease with heart failure and stage 1 through stage 4 chronic kidney disease, or unspecified chronic kidney disease; I50.40 Unspecified combined systolic (congestive) and diastolic (congestive) heart failure; E11.22 Type 2 diabetes mellitus with diabetic chronic kidney disease; I25.2 Old myocardial infarction; N18.9 Chronic kidney disease, unspecified; Z95.0 Presence of cardiac pacemaker; Z86.718 Personal history of other venous thrombosis and embolism; Z88.8 Allergy status to other drugs, medicaments and biological substances; Z79.899 Other long term (current) drug therapy; Z79.4 Long term (current) use of insulin
CPT/HCPCS: J1644; J7030